=== PATIENT | female | born 1935 | race Caucasian/White ===

== ENCOUNTER 2017-02-06 19:35 | Inpatient (IN) | payer OTHER, BC ==
[~2017-02-06] VITALS: Ht 154.9 cm; Wt 92.5 kg
--- NOTE | ~2017-02-06 | EKG ---
[address] [place] [address] ELECTROCARDIOGRAM REPORT Name: MAGALY PIERSON Room #: 429-P ADM IN M.R.#: [id number] Admission: 02/06/17 Attend Phys: Dagoberto Modi MD Discharge: Date of : 36 Report #: [id number] THIS REPORT FOR: //name// [facility] ED Test Date: 2017-02-06 Test Time: 20:04:56 Pat Name: MAGALY PIERSON Department: Room: [facility] Gender: F Classifier Tender: MZOOK : 1935 Requested By: Simin Aranda Order Number: [id number] MD: Yogi Bower Measurements Intervals [place] Rate: 111 P: MT: QRS: 86 QRSD: 154 T: 3 QT: 380 QTc: 517 Interpretive Statements Atrial fibrillation Right bundle branch block occasional premature ventricular complexes No previous ECG available for comparison Electronically Signed On 02-07-2017 15:22:24 CDT by Yogi Bower [email or web address] <ELECTRONICALLY SIGNED> By: Yogi Bower MD, [facility] 02/07/17 1522 03 03 Yogi Bower MD, FACC /EPI
[~2017-02-06 19:35] MED LIST: 8 HOUR PAIN RE650 M1 PO; ACETAMINOPHEN325 M1 PO; AFEDITAB CR60 M1 PO; AMARYL2 MG PO; ASPIRIN EC81 M1 PO; AUGMENTIN 500-1 EACH PO; CALCIUM 500 +1 EAC5 PO; CALCIUM 600 +1 EAC8 PO; CARDIZEM CD240 MG PO; CARVEDILOL3.125 MG PO; CATAPRES0.1 MG PO; CLONIDINE0.1 PO; COLACE100 MG PO; COREG12.5 MG PO; COUMADIN 2.5MG2.5 M1 PO; COUMADIN 5 MG TA5 M1 PO; COZAAR 25 MG TA25 M1 PO; COZAAR 50 MG TA50 M2 PO; DEMADEX20 MG PO; DILTIAZEM 24HR180 M2 PO; DILTIAZEM ER90 M1 PO; DILTIAZEM HCL90 MG PO; DUONEB 2.5-0.5 M3 ML INH; FEOSOL325 M1 PO; FISH OIL 1,0001 EAC5 PO; FISH OIL 1,001000 M2 PO; GLUCOPHAGE XR500 MG PO; GLUCOSAMINE HC500 MG PO; GOLDEN SEAL PO; HYDRALAZINE 2525 MG PO; JANUVIA100 MG PO; K-DUR10 MEQ PO; L-LYSINE1000 MG PO; LANOXIN 0.120.125 M1 PO; LASIX 80 MG TAB80 MG PO; LEVEMIR SUBQ; LOPRESSOR100 MG PO; LOPRESSOR50 PO; LOSARTAN POTASS50 MG PO; MAGOX 400400 MG PO; METFORMIN HCL500 M2 PO; METFORMIN HCL500 MG PO; METOLAZONE 2.52.5 MG PO; MUCINEX TA600 MG/TA2 PO; NITROFURANTOIN100 MG PO; NORVASC10 MG PO; NORVASC5 MG PO; NYSTATIN1 EA10 TOP; POTASSIUM CHLO10 ME1 PO; POTASSIUM20 PO; PREDNISONE 10 M10 M1 PO; PREDNISONE 20 M20 MG PO; PROTONIX PO; PROTONIX40 M2 PO; SHARK CARTILAG500 MG PO; SORINE 80 MG TA80 M1 PO; SYNTHROID150 MCG PO; TORSEMIDE20 MG PO; TRAMADOL 50 MG50 MG PO; TRIAMTERENE/HCT1 CA1 PO; TRINATE TABLET1 TAB PO; TYLENOL325 MG PO; ULTRAM 50MG TAB50 MG PO; VALSARTAN-HCTZ1 EAC3 PO; VICTOZA0.6 MG/0.1 SUBQ; VITAMIN E400 UNI6 PO; VITAMINC500 PO; ZIAGEN 300 MG300 MG; ZOCOR40 MG PO
[2017-02-06 19:52] VITALS: BP 123/85
[2017-02-06 20:35] LABS: ABSOLUTE NEUTROPHILS 8.8 thou/uL (1.4-8.2); BASOPHILS 0.5 % (0.0-2.0); EOSINOPHILS 1.3 % (0.0-3.0); HEMATOCRIT 30.5 % (37.0-47.0); HEMOGLOBIN 10.2 gm/dL (12.0-15.0); LYMPHOCYTES 7.7 % (24.0-44.0); MCH 31.7 pg (26.0-34.0); MCHC 33.6 g/dL (28.0-37.0); MCV 94.3 fL (80.0-100.0); MONOCYTES 7.8 % (1.0-8.0); PLATELET COUNT 168 thou/uL (150-400); POLYS 82.7 % (36.0-66.0); RBC 3.23 mil/uL (4.20-5.00); RDW 13.9 % (10.5-14.5); WBC 10.6 thou/uL (4.0-11.0)
[2017-02-06 20:39] LABS: MANUAL DIFF NO
[2017-02-06 20:44] LABS: ANION GAP 3 mmol/L (7-16); BUN 38 mg/dL (7-18); CALCIUM 8.7 mg/dL (8.5-10.1); CHLORIDE 100 mmol/L (98-107); CO2 37 mmol/L (21-32); CREATININE 1.4 mg/dL (0.6-1.3); GLUCOSE 115 mg/dL (70-99); POTASSIUM 3.8 mmol/L (3.5-5.1); SODIUM 140 mmol/L (136-145)
[2017-02-06 20:46] LABS: URINE BILIRUBIN NEGATIVE (Negative); URINE BLOOD NEGATIVE (Negative); URINE COLOR YELLOW; URINE GLUCOSE-RANDOM* NEGATIVE (Negative); URINE KETONES NEGATIVE (Negative); URINE LEUKOCYTES-REFLEX 1+ (Negative); URINE PROTEIN (DIPSTICK) NEGATIVE (Negative); URINE UROBILINOGEN 0.2 E.U./dl (0.2-1.0)
[2017-02-06 20:49] LABS: APTT 29.4 Seconds (24.5-32.8); PROTIME 10.8 Seconds (9.3-11.4)
[2017-02-06 20:51] LABS: ALBUMIN 3.5 g/dL (3.4-5.0); ALKALINE PHOSPHATASE 69 U/L (46-116); SGOT 14 U/L (15-37); SGPT 19 U/L (30-65); TOTAL BILIRUBIN 0.2 mg/dL (<0.1-1.0); TOTAL PROTEIN 7.6 g/dL (6.4-8.2); TROPONIN-I < 0.04 ng/mL (<0.04-0.07)
[2017-02-06 20:54] LABS: CASTS None Seen /LPF (None Seen); CRYSTALS None Seen /LPF (None Seen); SQUAMOUS 4-10 Moderate /LPF (0-3); URINE RBC None Seen /HPF (0-2); URINE WBC-REFLEX 6-15 Few /HPF (0-5)
[2017-02-06 23:37] VITALS: BP 114/55
[2017-02-06 23:42] VITALS: BP 136/52
[2017-02-07 04:00] VITALS: BP 141/68
[2017-02-07 06:24] LABS: CREATININE 1.2 mg/dL (0.6-1.3); POTASSIUM 3.8 mmol/L (3.5-5.1); TOTAL BILIRUBIN 0.2 mg/dL (<0.1-1.0)
[2017-02-07 07:55] VITALS: BP 124/56
[2017-02-07 16:14] VITALS: BP 143/56
[2017-02-07 20:00] VITALS: BP 150/72
[2017-02-08 04:00] VITALS: BP 151/77
[2017-02-08 06:09] LABS: HEMATOCRIT 28.3 % (37.0-47.0); HEMOGLOBIN 9.5 gm/dL (12.0-15.0); MCH 31.9 pg (26.0-34.0); MCHC 33.5 g/dL (28.0-37.0); MCV 95.4 fL (80.0-100.0); RBC 2.97 mil/uL (4.20-5.00); RDW 13.8 % (10.5-14.5); WBC 10.1 thou/uL (4.0-11.0)
[2017-02-08 06:34] LABS: ALBUMIN 3.2 g/dL (3.4-5.0); CALCIUM 8.3 mg/dL (8.5-10.1); CREATININE 1.2 mg/dL (0.6-1.3); PHOSPHORUS 3.4 mg/dL (2.5-4.9)
[2017-02-08 07:00] LABS: POTASSIUM 2.9 mmol/L (3.5-5.1)
[2017-02-08 07:44] VITALS: BP 159/69
[2017-02-08] MEDS ORDERED: FLAGYL500 MG PO (13:02)
[2017-02-08] MEDS ORDERED: CIPRO500 MG PO (13:02)
[2017-02-08 13:59] VITALS: BP 143/81
[2017-02-08 14:00] VITALS: BP 159/69
[2017-02-08 14:23] VITALS: BP 159/69
== END 2017-02-08 15:30 | disposition home health service (06) | DRG 444 ==
LOC: ER 19:35 → EROBS 22:12 → 4E 22:12 → EDBD 22:12 → 4E 23:23
PROVIDERS: Emergency Medicine; Hospitalist; Nurse Practitioner
DX: K80.20 Calculus of gallbladder without cholecystitis without obstruction (principal); J96.20 Acute and chronic respiratory failure, unspecified whether with hypoxia or hypercapnia; N17.9 Acute kidney failure, unspecified; I13.0 Hypertensive heart and chronic kidney disease with heart failure and stage 1 through stage 4 chronic kidney disease, or unspecified chronic kidney disease; K52.9 Noninfective gastroenteritis and colitis, unspecified; E11.22 Type 2 diabetes mellitus with diabetic chronic kidney disease; N18.9 Chronic kidney disease, unspecified; I50.9 Heart failure, unspecified; E78.5 Hyperlipidemia, unspecified; E66.9 Obesity, unspecified; G47.33 Obstructive sleep apnea (adult) (pediatric); K21.9 Gastro-esophageal reflux disease without esophagitis; E03.9 Hypothyroidism, unspecified; I48.0 Paroxysmal atrial fibrillation; J44.9 Chronic obstructive pulmonary disease, unspecified; E86.0 Dehydration; E87.6 Hypokalemia; Z99.81 Dependence on supplemental oxygen; Z79.82 Long term (current) use of aspirin; Z79.4 Long term (current) use of insulin; I25.2 Old myocardial infarction; Z87.891 Personal history of nicotine dependence; Z68.38 Body mass index [BMI] 38.0-38.9, adult; Z95.828 Presence of other vascular implants and grafts; Z86.718 Personal history of other venous thrombosis and embolism; Z87.01 Personal history of pneumonia (recurrent); Z87.81 Personal history of (healed) traumatic fracture; Z88.8 Allergy status to other drugs, medicaments and biological substances; Z79.899 Other long term (current) drug therapy
CPT/HCPCS: 10183

== ENCOUNTER 2017-03-07 21:35 | Inpatient (IN) | payer OTHER, BC ==
[~2017-03-07] VITALS: Ht 154.9 cm; Wt 110.6 kg
--- NOTE | ~2017-03-07 | HC ---
[facility] [place] [address] CONSULTATION Name: MAGALY PIERSON Room #: 440-P ADM IN M.R.#: [id number] Admission: 03/07/17 Attend Phys: Dagoberto Modi MD Discharge: Date of : 36 Report #: [id number] THIS REPORT FOR: //name// CC: NU[facility] physician/PCP Dagoberto Modi DATE OF SERVICE: 03/09/2017 HISTORY OF PRESENT ILLNESS: The patient is an 81-year-old white female I was asked to see in the hospital today because of atrial fibrillation. The patient has had multiple hospitalizations here at [facility]. She has a history of COPD and sleep apnea. She is also obese, standing 5 feet 1 inch and weighing 240 pounds. She is not very active. She is followed by Dr. Hui in my office. She has a long history of atrial fibrillation, rate controlled. 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 She has a history of mild aortic stenosis. The patient does have a history of anemia and has been taken off of anticoagulation. She was actually just admitted here to [facility] last month with nausea and vomiting. The patient recently had a cough. She came to the Emergency Room yesterday and was admitted. I was asked to see her for further evaluation and treatment. She actually just saw my partner, Dr. Hui in November. At that time, she was given more Lasix. Her most recent echocardiogram in 05/2016 showed normal left ventricular function, left ventricular hypertrophy, moderate aortic stenosis. The patient denies any recent chest pain, increased shortness of breath, palpitations, syncope. She is not very active because of her large size. PAST MEDICAL HISTORY: Otherwise significant for no major surgical procedures. She has a history of hypertension, diabetes, and hyperlipidemia. She has a long list of medications consisting of potassium, torsemide, Protonix, aspirin, hydralazine, Levemir, Synthroid, Zocor, carvedilol, losartan, diltiazem, metformin. ALLERGIES: She has previous intolerance to Sudafed. FAMILY HISTORY: No history of heart disease. SOCIAL HISTORY: She is . She and her live in [place], [place]. history of recent smoking, rarely drinks alcohol. REVIEW OF SYSTEMS: She has a history of COPD. No history of stroke, no history of peptic ulcer disease, liver disease, kidney disease, cancer, psychiatric illness, chronic skin condition. PHYSICAL EXAMINATION: GENERAL: Revealed an obese elderly female lying in bed. She appeared in [address] [address] CONSULTATION Name: MAGALY PIERSON Room #: [address] [place] [address] IN M.R.#: [id number] Admission: 03/07/17 Attend Phys: Dagoberto Modi MD Discharge: Date of : 36 Report #: [id number] distress. VITAL SIGNS: She had a blood pressure 130/50, pulse is 90 and regular. She is afebrile. HEENT: She is anicteric. Mucous membranes are moist. NECK: Veins difficult to assess due to obesity. Carotids had systolic murmur. CHEST: Clear to auscultation. CARDIAC: Irregular rhythm, grade 2 systolic ejection murmur. ABDOMEN: Obese, soft. EXTREMITIES: Had trace pedal edema. Dorsalis pedis pulse could not be palpated. SKIN: Cool and dry. NEUROLOGIC: Nonfocal. Her ECG showed atrial fibrillation, right bundle branch block. Her workup so far, she had a chest x-ray that was actually done 2 days ago on admission that showed cardiomegaly, mild pulmonary edema, mild infiltrate. LABORATORY DATA: Sodium 141, potassium 3.5, creatinine 1.2. Her troponin 0.04. BNP 3596. White blood cell count 15.6, hemoglobin 9.9, hematocrit 29.3. IMPRESSION AND RECOMMENDATIONS: 1. Acute on chronic diastolic heart failure. Recommend IV Lasix. 2. Atrial fibrillation. Rate controlled with calcium laura, beta laura. The patient not felt to be a candidate for anticoagulation and she has refused warfarin in the past. 3. Moderate aortic stenosis. Recommend repeat echocardiogram. 4. Bronchitis. 5. Obesity. 6. Hypertension. The patient has been on calcium laura, ARB and beta laura. 7. Diabetes. 8. Hyperlipidemia. The patient is on a statin drug. 9. History of deep venous thrombosis. The patient has IVC filter in place. 10. Anemia. No recent bleeding. <ELECTRONICALLY SIGNED> By: Abdifatah Lopez MD, [facility] 03/11/17 0916 0952 1034 Abdifatah Lopez MD, FAC /nt
--- NOTE | ~2017-03-07 | EKG ---
[address] [place] [address] ELECTROCARDIOGRAM REPORT Name: MAGALY PIERSON Room #: 440-P ADM IN M.R.#: [id number] Admission: 03/07/17 Attend Phys: Dagoberto Modi MD Discharge: Date of : 36 Report #: [id number] THIS REPORT FOR: //name// [facility] ED Test Date: 2017-03-07 Test Time: 22:08:46 Pat Name: MAGALY PIERSON Department: Room: [facility] Gender: F Splicing Technician: DAYANARA : 1935 Requested By: Simin Aranda Order Number: [id number] MD: Yogi Bower Measurements Intervals [place] Rate: 111 P: IN: QRS: 52 QRSD: 147 T: -3 QT: 376 QTc: 511 Interpretive Statements Atrial fibrillation Ventricular premature complex Right bundle branch block Compared to ECG 02/06/2017 20:04:56 No significant changes Electronically Signed On 03-08-2017 8:38:40 CDT by Yogi Bower [email or web address] <ELECTRONICALLY SIGNED> By: Yogi Bower MD, [facility] 04/837 07 07 Yogi Bower MD, [facility] /EPI
--- NOTE | ~2017-03-07 | 2DMMODE ---
[facility] [address] [place] [address] 2 D/M-MODE ECHOCARDIOGRAM Name: MAGALY PIERSON Room #: 440-P ADM IN M.R.#: [id number] Admission: 03/07/17 Attend Phys: Patrice Arriaga Discharge: Date of : 37 Date of Service: 03/09/17 1706 Report #: [id number] THIS REPORT FOR: //name// APPROVED REPORT Study performed: 03/09/2017 13:03:13 EXAM: Comprehensive 2D, Doppler, and color-flow Echocardiogram Patient Location: Bedside Room #: 440 Blood Pressure: 151/43 mmHg HR: 85 bpm Rhythm: Atrial Fibrillation Other Information Study Quality: Adequate Indications Murmur CHF. Hx: Afib, [place], CHF, HTN, HLP, DM, COPD, obesity 2D Dimensions RVDd: 39.92 mm LVEF(%): 57.89 (>50%) IVSd: 12.20 (7-11mm) LVOT Diam: 19.79 (18-24mm) LVDd: 51.49 mm PWd: 11.94 (7-11mm) Ascending Aorta: 28.58 mm LVDs: 35.69 (25-40mm) Aortic Root: 30.15 mm Montalvo's LVEF: 57.89 % Volumes Left Atrial Volume (Systole) Single Plane 4CH: 119.50 mL Single Plane 2CH: 132.44 mL LA ESV Index: 67.00 mL/m2 Aortic Valve AoV Peak Lavell.: 2.40 m/s AO Peak Gr.: 23.31 mmHg LV Max P.89 mmHg AO Mean Gr.: 14.19 mmHg LV Max: 0.85 m/s AO V2 VTI: 462.80 mm Mitral Valve [facility] [place] [address] 2 D/M-MODE ECHOCARDIOGRAM Name: LENNY PIERSONTTE Room #: [facility] ADM IN M.R.#: [id number] Admission: 03/07/17 Attend Phys: Patrice Arriaga Discharge: Date of : 37 Date of Service: 03/09/17 1706 Report #: [id number] MV Decel. Time: 224.02 ms MV E Max Lavell.: 1.79 m/s Pulmonary Valve PV Peak Lavell.: 1.13 m/s PV Peak Gr.: 5.15 mmHg Tricuspid Valve TR Peak Lavell.: 2.97 m/s RAP Estimate: 10.00 mmHg TR Peak Gr.: 35.78 mmHg RVSP: 46.00 mmHg Left Ventricle The left ventricle is normal size. There is normal LV segmental wall motion. Mild concentric left ventricular hypertrophy. Left ventricular systolic function is normal. LVEF is 60-65%. This study is not technically sufficient to allow evaluation of the LV diastolic function due to atrial fibrillation. Right Ventricle The right ventricle is normal size. The right ventricular systolic function is normal. Atria Left atrium is severely dilated. Evidence of small left to right shunt suggestive of a PFO> Right atrium is mildly dilated. Aortic Valve Aortic valve is moderately calcified. Trace aortic regurgitation. Mild aortic stenosis. Mitral Valve Severe mitral annular calcification. Mild mitral regurgitation. No evidence of mitral valve stenosis.. Tricuspid Valve The tricuspid valve is normal in structure. There is moderate tricuspid regurgitation. The right atrial pressure is estimated at 10 mmHg. There is moderate pulmonary hypertension with an estimated PAP of 46mmHg. Pulmonic Valve The pulmonary valve is normal in structure. Trace pulmonic regurgitation. Great Vessels The aortic root is normal in size. The ascending aorta is normal in size. IVC is dilated and collapses <50% with [facility] [address] [place] [address] 2 D/M-MODE ECHOCARDIOGRAM Name: MAGALY PIERSON Room #: 440-P ADM IN [facility].#: [id number] Admission: 03/07/17 Attend Phys: Patrice Arriaga Discharge: Date of : 37 Date of Service: 03/09/17 1706 Report #: [id number] inspiration. Pericardium There is no pericardial effusion. <Conclusion> Mild concentric left ventricular hypertrophy. LVEF is 60-65%. Left atrium is severely dilated. Right atrium is mildly dilated. Aortic valve is moderately calcified. Mild aortic stenosis. Mild mitral regurgitation. There is moderate tricuspid regurgitation. The right atrial pressure is estimated at 10 mmHg. There is moderate pulmonary hypertension with an estimated PAP of 46mmHg. <ELECTRONICALLY SIGNED> By: Abdifatah Lopez MD, FACC 03/09/171705 05 05 Abdifatah Lopez MD, FACC /INF
--- NOTE | ~2017-03-07 | HC ---
[facility] [place] [address] CONSULTATION Name: MAGALY PIERSON Room #: 440-P ADM IN M.R.#: [id number] Admission: 03/07/17 Attend Phys: Dagoberto Modi MD Discharge: Date of : 37 Report #: [id number] THIS REPORT FOR: //name// CC: [facility] physician/PCP Dagoberto Modi REFERRAL PHYSICIAN: Dr. Yumi Bell. REASON FOR REFERRAL: Hypoxia. HISTORY OF PRESENT ILLNESS: The patient is an 81-year-old white female who presents to the Emergency Room with progressive cough and dyspnea. Chest x-ray shows infiltrates. The patient was admitted for pneumonia. A pulmonary consultation was requested. The patient is followed longitudinally by Dr. Simon. She has obstructive sleep apnea, is on home CPAP. She also has COPD with remote history of tobacco use. The patient states that she was in her usual state of health until 2 days prior to presentation when she started to develop cough productive of purulent sputum along with progressive dyspnea. Otherwise, denies any chest pain, nausea, vomiting, diarrhea, and hematemesis. Portable chest x-ray performed today revealed patchy right-sided infiltrates. PAST MEDICAL HISTORY: Is notable for COPD, obstructive sleep apnea on home CPAP, exogenous obesity, history of DVT, history of heparin-induced thrombocytopenia, status post IVC filter placement, mild aortic stenosis, atrial fibrillation, recent echocardiogram performed in May of 2016 showed normal LV function, moderate aortic stenosis. She also has a history of hypertension, diabetes mellitus, hyperlipidemia. She has chronic hypoxic respiratory failure on 3 liters of O2. PAST SURGICAL HISTORY: Unremarkable. ALLERGIES: To HEPARIN, heparin resulting in thrombocytopenia, SUDAFED, LATEX, reactions not specified. MEDICATIONS: List from home reviewed. Current medications are also reviewed. She is also on methylprednisolone, Protonix, Zosyn, levofloxacin. FAMILY HISTORY: Noncontributory. SOCIAL HISTORY: She is , lives with her . She has smoked, but quit over 30 years ago. She denies any alcohol use. REVIEW OF SYSTEMS: As mentioned above, otherwise 10-point system review [facility] [address] [place] [address] CONSULTATION Name: MAGALY PIERSON Room #: 440-P [facility] IN ..#: [id number] Admission: 03/07/17 Attend Phys: Dagoberto Modi MD Discharge: Date of : 36 Report #: [id number] negative. PHYSICAL EXAMINATION: GENERAL: She is awake, alert, in mild respiratory distress. VITAL SIGNS: Temperature is 98 degrees Fahrenheit, pulse is 93, respiratory rate is 24, blood pressure 132/63 mmHg, saturation 98%. HEENT: Normocephalic, atraumatic. NECK: Supple without any lymphadenopathy or thyromegaly. CHEST: Breath sounds are fair with mild coarse breath sounds bilaterally. CARDIOVASCULAR: Heart sounds are distant. No obvious murmurs or gallop. Pulses are 2+/4 bilaterally. BREASTS: Deferred. ABDOMEN: Obese, soft, nontender, no organomegaly or masses felt. GENITOURINARY: Deferred. RECTAL: Deferred. EXTREMITIES: No cyanosis or clubbing. Trace bilateral edema is noted. LABORATORY DATA: Chest x-ray again shows patchy bilateral infiltrates, more on the right than the left. Electrolytes unremarkable except for creatinine of 1.3, bicarbonate is 37. Liver function profile is normal. WBC 11,700, hemoglobin 8.7, platelets are normal. Albumin 2.6. Arterial blood gas from 03/10/2017 revealed a pH of 7.32, pCO2 of 72 and pO2 of 57. IMPRESSION: 1. Acute on chronic hypoxic hypercapnic respiratory failure in this 81-year-old white female secondary to pneumonia, chronic obstructive pulmonary disease, probable obesity hypoventilation syndrome. 2. Right bilateral infiltrates, presumed pneumonia, possible aspiration, possible gram negative. 3. Chronic obstructive pulmonary disease with exacerbation, severity unknown. 4. SILVANO, on home CPAP. Arterial blood gas suggests probable obesity hypoventilation syndrome. Uncertain whether chronic hypercapnia is related to severe chronic obstructive pulmonary disease. However, given body habitus suspect hypoventilation syndrome is a primary cause. 5. Obesity. 6. Protein calorie malnutrition, severe, with an albumin of 2.6. 7. Past history of deep vein thrombosis status post IVC filter placement. RECOMMENDATION: Agree with corticosteroids and bronchodilators. Continue broad spectrum antibiotics. DVT and GI prophylaxis will be addressed. Recent worsening since admission may be related to severe multitude comorbid conditions including morbid obesity. Increasing activity would be helpful along with chest physiotherapy. [address] [address] CONSULTATION Name: MAGALY PIERSON Room #: 440-P ADM IN M.R.#: [id number] Admission: 03/07/17 Attend Phys: Dagoberto Modi MD Discharge: Date of : 36 Report #: [id number] Thank you for the consultation. <ELECTRONICALLY SIGNED> By: Wilfred Sanchez MD 03/12/17 1501 1501 2219 Wilfred Sanchez MD /nt
[~2017-03-07 21:35] MED LIST changes: +CIPRO500 MG PO; +FLAGYL500 MG PO
[2017-03-07 21:47] VITALS: BP 144/73
[2017-03-07] MEDS ORDERED: CARDIZEM CD240 MG PO (22:09)
[2017-03-07] MEDS ORDERED: METFORMIN HCL500 MG PO (22:11)
[2017-03-07] MEDS ORDERED: GOLDEN SEAL RO535 MG PO (22:14)
[2017-03-07] MEDS ORDERED: POTASSIUM20 PO (22:25)
[2017-03-07] MEDS ORDERED: LEVEMIR SUBQ (22:26)
[2017-03-07] MEDS ORDERED: MUCINEX TA600 MG/TA1 PO (22:27)
[2017-03-07] MEDS ORDERED: TUMS PO (22:28)
[2017-03-07 22:29] LABS: HEMATOCRIT 29.3 % (37.0-47.0); HEMOGLOBIN 9.9 gm/dL (12.0-15.0); MCH 31.9 pg (26.0-34.0); MCHC 33.6 g/dL (28.0-37.0); MCV 94.9 fL (80.0-100.0); PLATELET COUNT 177 thou/uL (150-400); RBC 3.09 mil/uL (4.20-5.00); RDW 14.1 % (10.5-14.5); WBC 15.6 thou/uL (4.0-11.0)
[2017-03-07] MEDS ORDERED: RESTORIL15 MG PO (22:29)
[2017-03-07 22:32] LABS: MANUAL DIFF YES
[2017-03-07 22:39] LABS: ANION GAP 4 mmol/L (7-16); BUN 30 mg/dL (7-18); CALCIUM 8.9 mg/dL (8.5-10.1); CHLORIDE 98 mmol/L (98-107); CO2 36 mmol/L (21-32); CREATININE 1.3 mg/dL (0.6-1.0); GLUCOSE 191 mg/dL (74-106); POTASSIUM 3.9 mmol/L (3.5-5.1); SODIUM 138 mmol/L (136-145)
[2017-03-07 22:49] LABS: ALBUMIN 3.1 g/dL (3.4-5.0); ALKALINE PHOSPHATASE 76 U/L (46-116); NT-PRO BRAIN NAT PEPTIDE 3596 pg/mL (<300); SGOT 20 U/L (15-37); SGPT 19 U/L (30-65); TOTAL BILIRUBIN 0.5 mg/dL (<0.1-1.0); TOTAL PROTEIN 7.5 g/dL (6.4-8.2); TROPONIN-I < 0.04 ng/mL (<0.04-0.07)
[2017-03-07 23:13] LABS: ABSOLUTE NEUTROPHILS 14.4 thou/uL (1.4-8.2); ANISOCYTOSIS SLIGHT; TOTAL CELL COUNT 100
[2017-03-08] VITALS (7 sets, daily range): BP systolic 119–150; BP diastolic 52–64
[2017-03-08 08:09] LABS: CALCIUM 8.2 mg/dL (8.5-10.1); CREATININE 1.2 mg/dL (0.6-1.0); MAGNESIUM 1.9 mg/dL (1.8-2.4); POTASSIUM 3.5 mmol/L (3.5-5.1)
[2017-03-09 03:21] VITALS: BP 130/50
[2017-03-09 08:00] VITALS: BP 151/43
[2017-03-09 12:00] VITALS: BP 119/50
[2017-03-09 16:00] VITALS: BP 124/56
[2017-03-09 19:30] VITALS: BP 143/69
[2017-03-10 04:01] VITALS: BP 144/58
[2017-03-10 05:34] LABS: HEMOGLOBIN 8.9 gm/dL (12.0-15.0); MCH 31.3 pg (26.0-34.0); MCV 94.9 fL (80.0-100.0); PLATELET COUNT 175 thou/uL (150-400); RBC 2.84 mil/uL (4.20-5.00); WBC 11.7 thou/uL (4.0-11.0)
[2017-03-10 05:51] LABS: ALBUMIN 2.6 g/dL (3.4-5.0); CALCIUM 8.5 mg/dL (8.5-10.1); CREATININE 1.2 mg/dL (0.6-1.0); MANUAL DIFF YES; TOTAL BILIRUBIN 0.6 mg/dL (<0.1-1.0); TOTAL PROTEIN 7.3 g/dL (6.4-8.2)
[2017-03-10 06:02] LABS: POTASSIUM 2.9 mmol/L (3.5-5.1)
[2017-03-10 07:59] LABS: ABSOLUTE NEUTROPHILS 10.3 thou/uL (1.4-8.2); ANISOCYTOSIS SLIGHT; LARGE PLATELETS OCCASIONAL; POIKILOCYTOSIS SLIGHT; TOTAL CELL COUNT 100
[2017-03-10 08:45] VITALS: BP 143/43
[2017-03-10 12:37] VITALS: BP 118/59
[2017-03-10 16:35] VITALS: BP 149/40
[2017-03-10 19:25] VITALS: BP 134/44
[2017-03-10 23:32] LABS: ABG SAMPLE TYPE ARTERIAL; HCO3 37.1 mmol/L (22.0-26.0); LACTATE 1.13 mmol/L (0.5-2.0); O2(CT) 13.6 mL/dL (15.0-23.0); O2Hb 86.5 % (92.0-98.0); sO2 86.4 % (92.0-98.0); tCO2 39.3 mmol/L (24.0-30.0)
[2017-03-10 23:33] VITALS: BP 133/58
[2017-03-10 23:35] LABS: STICK SITE R.RADIAL; pH 7.329 (7.360-7.450)
[2017-03-10 23:36] LABS: ABG COMMENT O2 7LPM WITH HOME; PCO2 72.2 mmHg (35.0-45.0)
[2017-03-11 03:20] VITALS: BP 137/73
[2017-03-11 05:48] LABS: HEMATOCRIT 26.1 % (37.0-47.0); HEMOGLOBIN 8.7 gm/dL (12.0-15.0); MCH 32.1 pg (26.0-34.0); MCHC 33.4 g/dL (28.0-37.0); MCV 96.2 fL (80.0-100.0); RBC 2.72 mil/uL (4.20-5.00); RDW 13.9 % (10.5-14.5); WBC 11.7 thou/uL (4.0-11.0)
[2017-03-11 05:56] LABS: CALCIUM 8.3 mg/dL (8.5-10.1); CREATININE 1.3 mg/dL (0.6-1.0); POTASSIUM 3.8 mmol/L (3.5-5.1)
[2017-03-11 08:00] VITALS: BP 159/72
[2017-03-11 12:14] VITALS: BP 132/63
[2017-03-12 05:00] VITALS: BP 151/76
[2017-03-12 06:55] LABS: HEMATOCRIT 27.7 % (37.0-47.0); MCH 31.1 pg (26.0-34.0); MCHC 32.4 g/dL (28.0-37.0); RBC 2.88 mil/uL (4.20-5.00); WBC 12.6 thou/uL (4.0-11.0)
[2017-03-12 07:03] LABS: CALCIUM 8.5 mg/dL (8.5-10.1); CREATININE 1.4 mg/dL (0.6-1.0); POTASSIUM 3.8 mmol/L (3.5-5.1)
[2017-03-12 08:04] VITALS: BP 138/55
[2017-03-12 12:00] VITALS: BP 161/61
[2017-03-12 19:56] VITALS: BP 109/87
[2017-03-12 21:53] VITALS: BP 153/64
[2017-03-13 06:02] VITALS: BP 141/95
[2017-03-13 08:00] VITALS: BP 146/84
[2017-03-13 12:00] VITALS: BP 151/62
[2017-03-13 16:00] VITALS: BP 158/80
[2017-03-14 04:24] LABS: HEMATOCRIT 29.5 % (37.0-47.0); HEMOGLOBIN 9.8 gm/dL (12.0-15.0); MCH 31.3 pg (26.0-34.0); MCHC 33.1 g/dL (28.0-37.0); MCV 94.4 fL (80.0-100.0); RBC 3.12 mil/uL (4.20-5.00); RDW 13.9 % (10.5-14.5); WBC 13.4 thou/uL (4.0-11.0)
[2017-03-14 04:31] VITALS: BP 141/78
[2017-03-14 04:31] LABS: CALCIUM 8.3 mg/dL (8.5-10.1); CREATININE 1.5 mg/dL (0.6-1.0); MAGNESIUM 2.1 mg/dL (1.8-2.4); POTASSIUM 3.6 mmol/L (3.5-5.1)
[2017-03-14 08:00] VITALS: BP 141/78
[2017-03-14 12:00] VITALS: BP 148/67
[2017-03-14] MEDS ORDERED: AUGMENTIN 500-1 EACH PO (13:05)
[2017-03-14] MEDS ORDERED: DUONEB 2.5-0.5 M3 ML INH (13:05)
[2017-03-14] MEDS ORDERED: MAGNESIUM OXID400 MG PO (13:22)
[2017-03-14] MEDS ORDERED: ADULT LOW DOSE81 MG PO (13:22)
[2017-03-14] MEDS ORDERED: COZAAR 50 MG TA50 M2 PO (13:22)
[2017-03-14] MEDS ORDERED: CARDIZEM CD240 MG PO (13:22)
[2017-03-14] MEDS ORDERED: MUCINEX TA600 MG/TA1 PO (13:22)
[2017-03-14] MEDS ORDERED: TYLENOL325 MG PO (13:22)
[2017-03-14] MEDS ORDERED: BENZONATATE100 MG PO (13:22)
[2017-03-14] MEDS ORDERED: K-DUR 20 MEQ T20 MEQ PO (13:22)
[2017-03-14] MEDS ORDERED: DEMADEX20 MG PO (13:22)
[2017-03-14] MEDS ORDERED: FISH OIL 1,001000 M2 PO (13:22)
[2017-03-14] MEDS ORDERED: ATORVASTATIN CA40 MG PO (13:22)
[2017-03-14] MEDS ORDERED: ULTRAM 50MG TAB50 MG PO (13:22)
== END 2017-03-14 13:45 | disposition home health service (06) | DRG 871 ==
LOC: ER 21:35 → EROBS 23:08 → 4S 23:08
PROVIDERS: Emergency Medicine; Family Medicine; Internal Medicine Pulmonary Disease; Nurse Practitioner
PROC: 5A09357 Assistance with Respiratory Ventilation, Less than 24 Consecutive Hours, Continuous Positive Airway Pressure (ICD-10-PCS; principal; 2017-03-10)
DX: A41.9 Sepsis, unspecified organism (principal); J18.9 Pneumonia, unspecified organism; I50.33 Acute on chronic diastolic (congestive) heart failure; J96.21 Acute and chronic respiratory failure with hypoxia; J96.22 Acute and chronic respiratory failure with hypercapnia; I13.0 Hypertensive heart and chronic kidney disease with heart failure and stage 1 through stage 4 chronic kidney disease, or unspecified chronic kidney disease; J44.1 Chronic obstructive pulmonary disease with (acute) exacerbation; J44.0 Chronic obstructive pulmonary disease with (acute) lower respiratory infection; N17.9 Acute kidney failure, unspecified; E44.1 Mild protein-calorie malnutrition; Z68.42 Body mass index [BMI] 45.0-49.9, adult; E78.5 Hyperlipidemia, unspecified; G47.33 Obstructive sleep apnea (adult) (pediatric); E66.9 Obesity, unspecified; K21.9 Gastro-esophageal reflux disease without esophagitis; E03.9 Hypothyroidism, unspecified; E11.22 Type 2 diabetes mellitus with diabetic chronic kidney disease; N18.9 Chronic kidney disease, unspecified; I48.0 Paroxysmal atrial fibrillation; D64.9 Anemia, unspecified; K80.20 Calculus of gallbladder without cholecystitis without obstruction; I35.0 Nonrheumatic aortic (valve) stenosis; I99.9 Unspecified disorder of circulatory system; Z87.81 Personal history of (healed) traumatic fracture; I25.2 Old myocardial infarction; Z86.718 Personal history of other venous thrombosis and embolism; Z88.8 Allergy status to other drugs, medicaments and biological substances; Z87.891 Personal history of nicotine dependence
CPT/HCPCS: 10100

== ENCOUNTER 2019-07-08 10:45 | Inpatient (IN) | payer OTHER, BC ==
[~2019-07-08] VITALS: Ht 154.9 cm; Wt 116.8 kg
--- NOTE | ~2019-07-08 | O ---
[facility] [place] [address] OPERATIVE REPORT Name: MAGALY PIERSON Room #: 355-P [facility] IN .R.#: [id number] Admission: 07/08/19 Attend Phys: Kenji Ramirez MD Discharge: Date of : 36 Report #: [id number] THIS REPORT FOR: //name// CC: Mauri Ramirez DATE OF SERVICE: 07/09/2019 PREOPERATIVE DIAGNOSIS: Left grade 2 open bimalleolar ankle fracture. POSTOPERATIVE DIAGNOSIS: Left grade 2 open bimalleolar ankle fracture. PROCEDURE PERFORMED: 1. Irrigation and debridement, left grade 2 open bimalleolar ankle fracture. 2. Open reduction and internal fixation of left bimalleolar ankle fracture. SURGEON: Martha Mayorga M.D. ANESTHESIA: General mask anesthesia. ESTIMATED BLOOD LOSS: 20 mL. TOURNIQUET TIME: 77 minutes. COMPLICATIONS: None. CONDITION: Stable. DISPOSITION: Recovery room. IMPLANTS USED: 7-hole 1/3 tubular plate and two 4 mm cannulated screws. INDICATIONS: The patient is an 84-year-old female who presented with a delayed presentation of grade 2 open left ankle fracture. The recommendation was for irrigation and debridement to decrease her infection risk as well as open reduction and internal fixation for stability purposes. The risks, benefits, alternatives and complications were discussed including but not limited to infection, damage to vessels or nerves, nonunion, malunion, hardware failure, hardware irritation, stiffness. We discussed the possibility of hardware removal at a later date. Her was present at her bedside. Informed consent was obtained. The correct extremity was identified and labeled by myself after verbal confirmation of the patient as well as visual confirmation and signed informed consent. DESCRIPTION OF PROCEDURE: The patient was brought to the operating room and placed in a supine position. She received preoperative antibiotics. Tourniquet [address] [address] OPERATIVE REPORT Name: MAGALY PIERSON Room #: 355-P ADM IN .R.#: [id number] Admission: 07/08/19 Attend Phys: Kenji Ramirez MD Discharge: Date of : 36 Report #: [id number] was placed over padding on the patient's left lower extremity. Left lower extremity was sterilely prepped and draped in the usual fashion. Final timeout was taken to verify correct patient, operative procedure, operative site, all concurred. The leg was elevated, exsanguinated and the tourniquet inflated. The sutures were removed from the 5 cm wound that was repaired in the Emergency Department at [facility]. The wound was opened and there was immediate communication with the fracture site of medial malleolus. The wound was cleaned of clot and debris. The joint was evaluated and looked to be in good condition. The fracture site and skin and subcutaneous tissue were irrigated with 3 liters of antibiotic saline using a Pulsavac. Then in order to gain fixation, the incision had to be extended at an oblique angle anteriorly. Next, dissection was carried down through subcutaneous tissue with tenotomy scissors and 2.2 guidewires for the 4-0 cannulated screws were placed. These were checked under fluoroscopy in both AP and lateral planes. Once they were found to be in appropriate position, the proximal portion of the fracture was drilled and a 46 mm long thread screws were placed. These had good fixation. There was noted some posterior cortical comminution. Next, the AP, lateral and mortise views showed good position of the fracture and hardware. Next, attention was placed to the lateral fibula. Approximately a 10 cm incision was made over the lateral fibula. Dissection was carried down through subcutaneous tissues with tenotomy scissors. The periosteum was elevated off the bone and the fracture site was identified. It was fairly comminuted. Her bone was not of the best quality. I was unable to put a lag screw in due to her poor bone quality and comminution. So neutralization plate was applied to the bone and distal screw was placed and proximal screw was then placed using fluoroscopic guidance. The rest of the holes were drilled, measured and appropriate size screws were placed while taking care to avoid penetration of the syndesmosis or ankle joint. AP and lateral views showed good position of the fracture and hardware. The wound was thoroughly irrigated. AP, lateral and mortise views were taken, which showed good position of the fracture and hardware. The external rotation view was also taken as well as the fibula was pulled on dynamically to assess the syndesmosis. The syndesmosis was intact and was thoroughly irrigated. Deep tissue was closed with 2-0 Vicryl suture and the subcutaneous tissue was closed with 2-0 Vicryl suture. The lateral wound was closed with jody and the wound was closed with deep Vicryl and 3-0 nylon suture as well as two distal jody. The wounds were dressed with Xeroform and sterile gauze. She was placed in a bulky dressing and very well-padded sugar tong and posterior slab splint. All toes were pink with brisk capillary refill at the conclusion of case after deflation of tourniquet. All sponge and needle counts were correct. The patient was transferred to postoperative recovery room in stable condition. By: 1424 1517 Martha Mayorga MD /nt
--- NOTE | ~2019-07-08 | HC ---
[facility] [place] [address] CONSULTATION Name: MAGALY PIERSON Room #: 355-P ADM IN M.R.#: [id number] Admission: 07/08/19 Attend Phys: Kenji Ramirez MD Discharge: Date of : 36 Report #: [id number] THIS REPORT FOR: //name// CC: Mauri Ramirez REASON FOR CONSULTATION: Left ankle fracture. HISTORY OF PRESENT ILLNESS: The patient is an 84-year-old female who was transferring from her wheelchair to a chair yesterday morning when she fell due to leg weakness per the patient and sustained an ankle fracture. She was seen at [facility], was transferred here due to her medical comorbidities. She reportedly had a laceration to the top of her foot that was repaired in the Emergency Department at [facility]. She was then placed in a splint and transferred here. She denies loss of consciousness. Denies dizziness or lightheadedness. Denies any other extremity issues. REVIEW OF SYSTEMS: MUSCULOSKELETAL: See HPI. NEUROLOGIC: Denies numbness or tingling. PAST MEDICAL HISTORY: Significant for COPD, hypertension, atrial fibrillation, chronic renal failure, diabetes, aortic stenosis, complete heart block, morbid obesity. ALLERGIES: INCLUDE HEPARIN and PSEUDOEPHEDRINE. SOCIAL HISTORY: Ambulates minimally with a walker, mostly transfers. Denies smoking. Drinks alcohol occasionally, is and lives with her of 62 years. SURGICAL HISTORY: Unknown. MEDICATIONS: The patient's MAR was reviewed, which shows ceftriaxone, diltiazem, aspirin, amiodarone, albuterol, pantoprazole, levothyroxine, insulin, atorvastatin, carvedilol, fentanyl, Healthylax, ondansetron and hydrocodone. LABORATORY DATA: Done on 07/09/2019 show white blood cell count 7, hemoglobin 8, hematocrit 24.6, platelet count 173. Chemistry shows an elevated creatinine of 1.7. PHYSICAL EXAMINATION: GENERAL: The patient is alert and oriented. She interacts appropriately. She is well-developed, well-nourished female, in mild amount of distress with manipulation of her leg. VITAL SIGNS: Most recent vital signs show a temperature of 36.8 degrees centigrade, heart rate is 81, blood pressure 144/66[place] [address] CONSULTATION Name: LENNY PIERSONTTE Room #: [address] [place] [address] IN .R.#: [id number] Admission: 07/08/19 Attend Phys: Kenji Ramirez MD Discharge: Date of : 36 Report #: [id number] bedside. EXTREMITIES: Examination of her left lower extremity, she is in a sugar-tong splint. The splint and dressing were removed. She has a repaired 5 cm laceration at the medial ankle. There was significant dried blood in the Kerlix dressing. There is significant amount of edema, no erythema. She has tenderness to her ankle. No significant tenderness at her foot. Her foot is otherwise neurovascularly intact. She wiggles her toes. She has diffuse edema and tenderness in her knee. No pain with hip range of motion. There is a mild amount of pain with knee range of motion. RADIOGRAPHS: Unavailable for review. IMPRESSION AND PLAN: Left probable open bimalleolar ankle fracture with a subacute presentation. I spoke with the medical doctor. He started ceftriaxone as noted in the MAR. We will order stat x-rays of her ankle and knee and the patient will require debridement with probable open reduction and internal fixation of the ankle depending x-ray findings. I will also order stat x-rays of her knee. We discussed the diagnosis as well as treatment options. The risks, benefits, alternatives and complications were discussed including but not limited to infection, damage to vessels or nerves, nonunion, malunion, hardware failure, hardware irritation, stiffness. Informed consent was obtained. Plan to proceed with this at the earliest convenience. Questions were encouraged and answered to the best of my ability. By: [id number] Martha Mayorga MD /nt
[~2019-07-08 10:45] MED LIST changes: +ADULT LOW DOSE81 MG PO; +ATORVASTATIN CA40 MG PO; +BENZONATATE100 MG PO; +CARDIZEM CD 18180 M3 PO; +COZAAR 25 MG TA25 M2 PO; +GOLDEN SEAL RO535 MG PO; +K-DUR 20 MEQ T20 MEQ PO; +LUNESTA2 MG PO; +MAGNESIUM OXID400 MG PO; +MUCINEX TA600 MG/TA1 PO; +MUCINEX600 MG PO; +OMEGA-31000 M1 PO; +OS-CAL 500+D31 EAC1 PO; +PACERONE 200 M200 M1 PO; +RESTORIL15 MG PO; +TUMS PO
[2019-07-08 12:40] VITALS: BP 152/71
[2019-07-08] MEDS ORDERED: COZAAR 25 MG TA25 M1 PO (13:12)
[2019-07-08] MEDS ORDERED: IPRAT-ALBUT 0.5-3 ML IH (13:14)
[2019-07-08] MEDS ORDERED: L-LYSINE1000 M1 PO (13:15)
[2019-07-08 14:15] LABS: HEMATOCRIT 27.5 % (37.0-47.0); HEMOGLOBIN 9.1 gm/dL (12.0-15.0); MCH 32.9 pg (26.0-34.0); MCHC 33.2 g/dL (28.0-37.0); MCV 98.8 fL (80.0-100.0); RBC 2.78 mil/uL (4.20-5.00); RDW 14.9 % (10.5-14.5); WBC 10.1 thou/uL (4.0-11.0)
[2019-07-08 14:31] LABS: CALCIUM 9.5 mg/dL (8.5-10.1); CREATININE 1.8 mg/dL (0.6-1.0); POTASSIUM 4.7 mmol/L (3.5-5.1)
[2019-07-08 14:37] LABS: ALBUMIN 3.3 g/dL (3.4-5.0); TOTAL BILIRUBIN 0.3 mg/dL (<0.1-1.0); TOTAL PROTEIN 6.9 g/dL (6.4-8.2)
[2019-07-08 15:40] VITALS: BP 155/103
--- NOTE | 2019-07-08 18:15 | NUR ---
ASSUMED CARE OF PT ON ARRIVAL TO UNIT AT APPROX 1130. PT ALERT AND ORIENTED X3, COMPLAINING OF PAIN TO LLE. PRESENTS WITH CAST PLACED FROM [facility]. SHALLOW DIMINISHED BREATHS ON 4-5L NC. AT BEDSIDE. MEDS RECONCILED. PAIN NOW WELL CONTROLLED WITH CURRENT MED REGIMEN. AFIB ON TELEMETRY. ORTHO CONSULTED FOR POSSIBLE SURGERY. GOOD APPETITE. WILL CONT TO MONITOR.
[2019-07-08 19:10] VITALS: BP 147/59
[2019-07-08 22:51] LABS: URINE BILIRUBIN NEGATIVE (Negative); URINE BLOOD NEGATIVE (Negative); URINE CLARITY CLEAR; URINE COLOR YELLOW; URINE GLUCOSE-RANDOM* NEGATIVE (Negative); URINE KETONES NEGATIVE (Negative); URINE LEUKOCYTES 1+ (Negative); URINE NITRITE NEGATIVE (Negative); URINE PROTEIN (DIPSTICK) TRACE (Negative); URINE SPECIFIC GRAVITY 1.015 (1.005-1.035); URINE UROBILINOGEN 0.2 E.U./dl (0.2-1.0)
[2019-07-08 23:20] LABS: BACTERIA >30 Many /HPF (None Seen); CASTS None Seen /LPF (None Seen); CRYSTALS None Seen /LPF (None Seen); MUCUS 0-3 Light strn/LPF (None Seen); SQUAMOUS 0-3 Few /LPF (0-3); URINE RBC 0-2 Rare /HPF (0-2)
[2019-07-08 23:35] VITALS: BP 149/70
--- NOTE | 2019-07-09 03:16 | NUR ---
ASSUMED PT CARE AROUND 1900. A&OX3-4, FORGETFUL. C/O LEFT ANKLE PAIN. PAIN MEDICATION GIVEN WITH PARTIAL RELIEF. VSS. AFEBRILE. LEFT LE/ANKLE SOFT CAST IN PLACE. PT ATTEMPTED TO WEAR HOME CPAP WHILE SLEEPING. O2 SATS DROPPED TO 80S SINCE PT IS A MOUTH BREATHER. RT NOTIFIED. PT WAS NOT TOLERATING CPAP WELL SO PLACED BACK ON BASELINE OF 4L NC. O2 SATS STABLE ON 4L NC. PT SLEPT MOST OF THE NIGHT. RESP EVEN AND UNLABORED. FALL PRECAUTIONS IN PLACE. PROGRESSING SLOWLY TOWARD POC GOALS. WILL CONTINUE TO MONITOR FURTHER.
[2019-07-09 03:38] VITALS: BP 149/43
[2019-07-09 05:14] LABS: HEMATOCRIT 24.6 % (37.0-47.0); MCH 32.4 pg (26.0-34.0); MCHC 32.7 g/dL (28.0-37.0); MCV 99.2 fL (80.0-100.0); RBC 2.48 mil/uL (4.20-5.00); RDW 14.8 % (10.5-14.5)
[2019-07-09 05:24] LABS: CALCIUM 9.1 mg/dL (8.5-10.1); CREATININE 1.7 mg/dL (0.6-1.0); POTASSIUM 4.9 mmol/L (3.5-5.1)
[2019-07-09 07:30] VITALS: BP 144/66
--- NOTE | 2019-07-09 10:44 | EKG ---
[address] [address] ELECTROCARDIOGRAM REPORT Name: MAGALY PIERSON Room #: 355- ADM IN M.R.#: [id number] Admission: 07/08/19 Attend Phys: Kenji Ramirez MD Discharge: Date of : 36 Report #: [id number] THIS REPORT FOR: //name// [facility] Test Date: 2019-07-08 Test Time: 15:57:52 Pat Name: MAGLAY PIERSON Department: Room: 355 Gender: F Director Pharmacovigilance: ELOINA : 1935 Requested By: Kenji Ramirez Order Number: [id number] MD: Yogi Bower Measurements Intervals [place] Rate: 96 P: AL: QRS: 146 QRSD: 157 T: -11 QT: 393 QTc: 497 Interpretive Statements Atrial fibrillation Right bundle branch block Compared to ECG 03/07/2017 22:08:46 Ventricular premature complex(es) no longer present Electronically Signed On 07-09-2019 10:44:34 CDT by Yogi Bower [email or web address] <ELECTRONICALLY SIGNED> By: Yogi Bower MD, [facility] 07/09/19 1044 [id number] [id number] Yoig Bower MD, [facility] /EPI
[2019-07-09 15:22] LABS: BE(vivo) 8.2 mmol/L (-2 to +3); HCO3 35.4 mmol/L (22.0-26.0); PCO2 67.7 mmHg (35.0-45.0); PO2 73.3 mmHg (80.0-100.0); pH 7.336 (7.360-7.450); sO2 93.3 % (92.0-98.0)
[2019-07-09 16:44] VITALS: BP 159/56
--- NOTE | 2019-07-09 17:30 | NUR ---
ASSUMED CARE OF PT AT 0700. PT ALERT AND ORIENTEDX3-4, COMPLAINING OF PAIN TO LLE - WELL CONTROLLED WTIH CURRENT MED REGIMEN. SURGERY PERFORMED BY ORTHO ON LEFT ANKLE. RETURNED ON BIPAP. FAMILY AT BEDSIDE. VITALS STABLE. WILL CONT TO MONITOR. INCONTINENT OF URINE. TURNED Q2H. ANTICIPATING POSSIBLE PICC PLACEMENT - AWAITING ORDERS. IV ABX INFUSING. AFIB ON TELEMETRY. WILL CONT TO MONITOR.
--- NOTE | 2019-07-09 19:48 | NUR ---
CONSULTED TO PLACE A PICC FOR A PATIENT NEEDING ADDITIONAL ACCESS. ORDER AND CONSENT NOTED. THE PROCEDURE WAS DISCUSSED WITH THE PATIENT, AND SON AND THE ALL AGREED WITH BENIFITS AND RISKS. THE PATIENT WAS IN 10/10 PAIN AND IMPATIENT WITH SETUP. A TRIPLE LUMEN PICC ATTEMPTED TO THE ELIZABETH CEPHALIC. UNABLE TO ADVANCE THE PICC PAST THE SHOULDER AND UNABLE TO PLACE IN THE SVC AFTER MULTIPLE ATTEMPTS, THIS PATIENT IS UNABLE TO REPOSITION FOR MORE ATTEMPTS. LINE TRIMMED A MIDLINE ACCESS WITH BRISK BLOOD RETURN AND FLUSHED EASILY. DISCUSSED MIDLINE ACCESS WITH THE PATIENTS NURSE- ALL HER IV MEDS ARE COMPATABLE. DISCUSSED WITH PATIENT AND FAMILY WELL- IF A CENTRAL ACCESS IS NEEDED FOR HALF-WAY ANTIBIOTICS THE LINE MAY NEED TO BE PLACED IN IR. UNABLE TO USE LEFT ARM DUE TO LEFT SIDED PACEMAKER.
[2019-07-09 20:02] VITALS: BP 154/65
[2019-07-09 23:30] VITALS: BP 145/60
--- NOTE | 2019-07-10 03:24 | NUR ---
ASSUMED PT CARE AROUND 1900. PT SLEPT MOST OF THE NIGHT. RESP EVEN AND UNLABORED. O2 SATS STABLE ON BIPAP. INCONTINENT OF URINE WITH ADEQUATE URINE OUTPUT. REPOSITIONED PT WOUND ALLOW. SOMETIMES PT OR WOUND REFUSED BEING TURNED SO SHE COULD REST. LLE DRESSING C/D/I. PAIN MEDICATION GIVEN THIS MORNING, PER PT REQUEST. FALL PRECAUTIONS IN PLACE. PROGRESSING SLOWLY TOWARD POC GOALS. WILL CONTINUE TO MONITOR FURTHER.
[2019-07-10 04:35] VITALS: BP 104/44
[2019-07-10 07:29] VITALS: BP 148/78
[2019-07-10 11:01] VITALS: BP 136/51
--- NOTE | 2019-07-10 14:01 | NUR ---
ASSESSMENT: CM REVIEWED CHART AND MET WITH PATIENT AT THE BEDSIDE. PT WAS ADMITTED WITH ANKLE FX AND HAD SURGERY THIS WEEKEND. PT WAS FALLING ASLEEP DURING ASSESSMENT BUT ABLE TO ANSWER A FEW QUESTIONS. PT REPORTS LIVING WITH HER IN [place], [place]. PT HAS A RAMP TO ENTER THE HOME AND HAS A WHEELCHAIR/WALKER/CANE. PT HAS OXYGEN ARRANGED AT HOME BUT UNSURE OF PROVIDER. PT ALSO HAS NEBULIZER AND CPAP (PAST NOTE SAYS THROUGH [facility]). PT ALSO HAS A HOYFER LIFT. PT THEN FELL ASLEEP. CM ATTEMPTED TO REACH PATIENTS BUT VM WAS LEFT. CM DID SPEAK WITH PATIENTS SON WHO REPORTS THAT PATIENT HAS NEVER BEEN TO A SNF/REHAB. CM DISCUSSED PATIENT MAY NEED POST ACUTE CARE AND HE STATES IT WILL BE UP TO WHERE HIS FATHER DECIDES. CM LEFT VM FOR . CM WILL CONTINUE TO FOLLOW TO ASSIST NEEDED. 5N IS ALSO LOOKING AT PATIENT AND A CONSULT WAS PLACED.
[2019-07-10 15:57] VITALS: BP 127/51
[2019-07-10 19:45] VITALS: BP 121/56
--- NOTE | 2019-07-10 20:06 | NUR ---
Assumed care approx. 0700 this AM. Patient 02 sats adequate on 4LNC, but reported to drop when working with physical therapy. Patient turned Q2H. Nutritional intake has been poor, but diet has been advanced with no nausea or vomiting. Fall precautions in place. at bedside most of the day. Slow progression toward plan of care.
[2019-07-11 03:53] VITALS: BP 142/60
--- NOTE | 2019-07-11 06:20 | NUR ---
ASSUMED CARE AT 1900, ASSESSMENTS COMPLETED Q4H PER PROTOCOL. PT REPORTED LEFT LEG PAIN 5 OF 10 IN EVENING; GAVE ONE TAB NORCO; THIS AM, PT RATED PAIN A 7, GIVEN 2 TABS OF NORCO. DENIED NAUSEA. LEFT TOES HAD BRISK CAP REFILL, PINK COLOR, AND PT WAS ABLE TO SLIGHTLY WIGGLE TOES WITHOUT PAIN. SHALLOW RESPIRATORY EFFORT, WHILE AWAKE PT SATTING MID-HIGH 90'S ON 4L; BECAME SOB WHEN LYING MORE FLAT FOR REPOSITIONING OR TURNS; ONCE SHE FELL ASLEEP, SATS DROPPED TO 85%--PLACED ON BIPAP OVERNIGHT WHILE ASLEEP, SWITCHED BACK TO NC ABOUT 0500. DARK URINE OUT VIA FEMALE EXTERNAL CATH, WITH ONE INSTANCE OF INCONT EARLY IN SHIFT. NO OTHER CONCERNS, WILL CONTINUE TO MONITOR.
[2019-07-11 07:26] VITALS: BP 148/59
--- NOTE | 2019-07-11 08:14 | HC ---
[facility] [place] [address] CONSULTATION Name: MAGALY PIERSON Room #: 355-P ADM IN M.R.#: [id number] Admission: 07/08/19 Attend Phys: Kenji Ramirez MD Discharge: Date of : 36 Report #: [id number] THIS REPORT FOR: //name// CC: Mauri Ramirez DATE OF SERVICE: 07/10/2019 ENDOCRINOLOGY CONSULTATION. ATTENDING PHYSICIAN: Dr. Kenji Ramirez. REASON FOR CONSULTATION: Uncontrolled type 2 diabetes mellitus. HISTORY OF PRESENT ILLNESS: This is an 84-year-old female patient with a medical background significant for multiple issues including type 2 diabetes mellitus, chronic kidney disease and COPD. The patient arrived at [facility] following a fall that resulted in a left ankle fracture, which she sustained as she tripped over while trying to get out of her wheelchair. The patient underwent a left irrigation and debridement grade 2 open bimalleolar ankle fracture and open reduction and internal fixation yesterday and had an uneventful surgery. The patient says that she has been a diabetic for many years and while not sure if she is on any oral medications for diabetes, she did indicate that she takes Levemir insulin 22 units at bedtime. The patient notes that she does not check her blood glucose values often at all. However, she denies issues with hypoglycemia. The patient is not aware of issues of diabetic retinopathy, but notes occasional numbness and tingling in the feet. Also, the patient is hypothyroid and is maintained on levothyroxine 150 mcg daily. REVIEW OF SYSTEMS: CONSTITUTIONAL: Fatigue, tiredness, but no fever or chills. PULMONARY: Baseline COPD noted by exertional shortness of breath, intermittent cough, but no wheezes. CARDIAC: No chest pain, palpitations, or syncope. GASTROINTESTINAL: Occasional bloating, distention, discomfort, but not hematemesis or diarrhea. SKIN: Intermittent issues with bruising but not ecchymosis. No ulceration, no rash, no itching. NEUROLOGY: Negative for syncope, seizures, headaches. MUSCULOSKELETAL: Currently, the patient is in severe pain involving her left ankle, but notes intermittent issues with myalgias and arthralgias. PSYCHIATRIC: Mood swings, but no hallucinations or delusions. [address] [address] CONSULTATION Name: MAGALY PIERSON Room #: 355-P [facility] IN M.R.#: [id number] Admission: 07/08/19 Attend Phys: Kenji Ramirez MD Discharge: Date of : 36 Report #: [id number] Otherwise, review of systems noncontributory, other than those mentioned in the HPI. PAST MEDICAL HISTORY: 1. Atrial fibrillation. 2. Osteoarthritis. 3. Obesity. 4. Chronic obstructive pulmonary disease. 5. Type 2 diabetes mellitus. 6. Hypertension. 7. Iron deficiency. 8. Anemia. 9. Hypothyroidism. 10. Hyperlipidemia. 11. GERD. 12. Obstructive sleep apnea. 13. IVC filter placement in 2013. 14. Congestive heart failure. 15. Chronic kidney disease. OUTPATIENT MEDICATIONS: Losartan 25 mg daily, L-Lysine 1000 mg daily, ipratropium/albuterol q. 4 hours, ferrous sulfate 325 mg p.o. daily, calcium carbonate with vitamin D, Os-Bright 500/D3 daily, Lunesta 2 mg p.r.n. for sleep, diltiazem CD 180 mg daily, omega 3 fatty acids 1000 mg daily, K-Dur 20 mEq daily, Mucinex 600 mg q. 12 hours, amiodarone 200 mg daily, Demadex 20 mg daily, levothyroxine 150 mcg daily, Coreg 25 mg b.i.d., simvastatin 40 mg at bedtime, aspirin 81 mg daily, pantoprazole 40 mg daily, hydralazine 25 mg q. 8 hours, Levemir 22 units at bedtime. ALLERGIES: HEPARIN and PSEUDOEPHEDRINE. FAMILY HISTORY: Noted for heart disease, cancer. SOCIAL HISTORY: , lives with her . Ex-smoker. PHYSICAL EXAMINATION: GENERAL: This is an elderly female patient who is not in distress, but clearly uncomfortable and in pain. VITAL SIGNS: Blood pressure is 148/78 mmHg, heart rate is 99 beats per minute, respirations 20 per minute, temperature 36.7 degrees. HEENT: Anicteric sclerae. Intact ocular motions. NECK: No JVD, carotid bruits or lymphadenopathy. No appreciated thyromegaly. CHEST: Noted for distant breath sounds, rhonchi. No wheezes or crackles. HEART: Regular rate and rhythm without murmurs or gallops. ABDOMEN: Obese, but soft and lax without tenderness or organomegaly. She has active bowel sounds. [address] [address] CONSULTATION Name: MAGALY PIERSON Room #: 355-P [facility] IN M.R.#: [id number] Admission: 07/08/19 Attend Phys: Kenji Ramirez MD Discharge: Date of : 36 Report #: [id number] EXTREMITIES: Lower extremity exam, left ankle is in dressing. Trace ankle edema of the right lower extremity. NEUROLOGIC: Awake, alert and oriented to time, place and person. The remainder of the examination is grossly nonfocal, but is limited by her recent surgery. PSYCHIATRIC: The patient appears to be a bit stressed, itchy; however, she answered all my questions appropriately. SKIN: Scattered bruise carmona over both upper extremities. No ulceration, otherwise. LABORATORY DATA: Blood glucose values have ranged from 99-141 mg/dL. Sodium 137, potassium 4.9, chloride 94, CO2 40, anion gap 3, BUN 27, creatinine 1.7, AST 19, lipase 133, total bilirubin 0.3, direct bilirubin 0.1. Calcium 9.1, phosphorus 3.4, magnesium 2.1, alkaline phosphatase 81, ALT 18, total protein 6.9, albumin 3.3, GFR 29. Lactic acid 1.4. LDH 223, CPK 190. BNP 3596. Iron 19, TIBC 302. INR 1.0. Hemoglobin 8.0. TSH 4.65, free T4 1.2. ASSESSMENT AND PLAN: 1. Type 2 diabetes mellitus, uncontrolled. The patient is a long-term type 2 diabetic and is maintained on what appears to be Levemir insulin monotherapy. As noted above, the patient has stage IV chronic kidney disease and as such is fairly limited in terms of what oral medications she can be on. During her hospital stay so far, her blood glucose values have fallen within a reasonable range as noted above, between 99 and 141 mg/dL. That said, this is likely due to her significantly limited p.o. intake preoperatively. The patient continues to not feel like eating much. I suspect that as her p.o. intake improves going forward that we will need further support by resuming her full dose insulin and possibly Humalog supplemental scale. In the immediate setting, I will order hemoglobin A1c to further investigate her baseline state as well as continue to monitor her blood glucose values every 6 hours. I will also start Levemir 10 units at night tonight to ensure that the patient does not develop severe hyperglycemia over the next short period of time. 2. Hypothyroidism. The patient has longstanding history of hypothyroidism. Her most recent TSH is indicative of suboptimal control. That said, I will go ahead and raise her levothyroxine dose to 200 mcg daily. Further followup will be needed in 6-8 weeks from now. 3. Hyperlipidemia. The patient is currently on atorvastatin 40 mg daily. She is to continue with the current regimen. 4. Hypertension. The patient is currently on a combination of Cardizem-CD 180 mg daily, carvedilol 12.5 mg b.i.d. Blood pressure control is under adequate control. She is to continue current regimen. [address] [address] CONSULTATION Name: MAGALY PIERSON Room #: 355-P [facility] IN .R.#: [id number] Admission: 07/08/19 Attend Phys: Kenji Ramirez MD Discharge: Date of : 36 Report #: [id number] I certainly appreciate this consultation by Dr. Ramirez. <ELECTRONICALLY SIGNED> By: Alfredo Moran MD 07/11/19813 5 215 Alfredo Moran MD /margarette
[2019-07-11 11:05] VITALS: BP 147/76
--- NOTE | 2019-07-11 12:35 | NUR ---
Assess due to high BMI 49=extreme class III obesity. Pt advanced age 84, admitted with ankle fracture after fall from wheelchair. Hx dm. Seen by endocronologist, appetite significantly better today, ate 100%, BG well controlled. Wt has been variable 225-275 over past several years, current wt 259 lb. Low nutrition risk
--- NOTE | 2019-07-11 12:57 | NUR ---
ON-GOING ASSESSMENT: CM REVIEWED CHART. 5N HAS BEEN CONSULTED TO SEE PATIENT AND HAS YET TO DO EVALUATION. ALSO CM WAS NOTIFIED BY 5N THAT OT POST OP ORDERS WERE NOTE WRITTEN. CM NOTIFIED BEDSIDE RN WHO GOT POST OP OT ORDERS. CM NOTIFIED 5N AND THEY STATE THEY WILL HAVE OT COME SEE PATIENT. CM WAITING ON OT EVAL AND INPUT FROM 5N. CM ALSO ATTEMPTED TO CONTACT PATIENTS ED BUT NO ANSWER AND VM WAS LEFT.
[2019-07-11 15:44] LABS: HEMATOCRIT 20.8 % (37.0-47.0); HEMOGLOBIN 6.8 gm/dL (12.0-15.0); MCH 32.8 pg (26.0-34.0); MCHC 32.9 g/dL (28.0-37.0); MCV 99.9 fL (80.0-100.0); RBC 2.08 mil/uL (4.20-5.00); RDW 14.8 % (10.5-14.5); WBC 8.3 thou/uL (4.0-11.0)
[2019-07-11 15:47] VITALS: BP 137/57
--- NOTE | 2019-07-11 16:50 | NUR ---
PATIENT SEEN BY HANNAH ANDERSON NP WITH DR. LYNN, AND THERAPY EVALUATIONS ARE COMPLETE. AFTER REVIEWING THERAPY EVALUATION, IS RECOMMENDING SKILLED REHAB FOR PATIENT. CLOTH DESIZING RANGE TENDER INFORMED OF DECISION. THANK YOU FOR THIS REFERRAL.
--- NOTE | 2019-07-11 17:29 | HC ---
[facility] [place] [address] CONSULTATION Name: MAGALY PIERSON Room #: 355-P ADM IN M.R.#: [id number] Admission: 07/08/19 Attend Phys: Kenji Ramirez MD Discharge: Date of : 36 Report #: [id number] THIS REPORT FOR: //name// CC: Mauri Ramirez DATE OF SERVICE: 07/10/2019 INFECTIOUS DISEASE CONSULTATION REASON FOR CONSULTATION: Evaluate left ankle open fracture. HISTORY OF PRESENT ILLNESS: An 84-year-old underlying COPD, hypertension, chronic renal disease and diabetes, who 3 days ago in the keeper head hours was transferring from one chair to another when she twisted wrong and fell, suffering an open fracture to her left ankle. Seen initially at [facility] where she had initial attention to the wound and then transferred to [facility] for further orthopedic intervention. She is diabetic. No ongoing corticosteroids. Denied any fever, chills or sweats. He was taken to surgery yesterday for debridement and ORIF. No intraoperative complications. She received cefazolin perioperatively. This was switched to ceftriaxone today when a urinalysis came back with pyuria and bacteriuria. No urine culture is yet available. The patient denied any fever, chills or sweats and she had no dysuria, frequency or back pain. ALLERGIES: HEPARIN and SUDAFED. MEDICATIONS: As noted on her JAN, now on ceftriaxone. PAST MEDICAL HISTORY: Diabetes, coronary artery disease. Past smoker, obstructive sleep apnea, COPD, obesity, IVC filter for DVT, gastroesophageal reflux, heparin-induced thrombocytopenia, hypothyroidism, paroxysmal atrial fibrillation, pneumonia and congestive heart failure, chronic kidney disease, hypertension, left humerus fracture. FAMILY HISTORY: Noncontributory. SOCIAL HISTORY: Past smoker, no significant alcohol intake. REVIEW OF SYSTEMS: Ten-point review was otherwise negative other than what has been described above. PHYSICAL EXAMINATION: VITAL SIGNS: Afebrile and hemodynamically stable. GENERAL: She is alert and cooperative and pleasant, in no acute distress. SKIN: Without rash or decubitus. No palpable adenopathy. Moderately obese. [facility] [address] [place] [address] CONSULTATION Name: MAGALY PIERSON Room #: 355-P [facility] IN .R.#: [id number] Admission: 07/08/19 Attend Phys: Kenji Ramirez MD Discharge: Date of : 36 Report #: [id number] HEENT: Eyes, without scleral icterus. Mouth without mucositis. NECK: Supple. LUNGS: Clear. HEART: Regular, without murmur, gallop or rub. ABDOMEN: Soft, nontender, no hepatosplenomegaly or mass appreciated. EXTREMITIES: Left foot was in a splint, which was wrapped. Toes were warm to the touch. She had good capillary refill, had full movement in the toes. She had some bruising to her knee on the left, 1+ edema was evident. NEUROLOGIC: Cranial nerves intact. Strength in upper and lower extremities was otherwise normal. Sensation intact to fine touch. Mood was normal. BACK: Nontender. No CVA tenderness. LABORATORY STUDIES: Reviewed. Creatinine 1.7. Hemoglobin 8, WBC 7, platelet count 173,000. Urinalysis, pyuria and bacteriuria. Urine culture pending. No tissue samples available. IMPRESSION: 1. An 84-year-old status post ORIF, grade 2 open bimalleolar ankle fracture. Postoperative day #1. 2. Asymptomatic cystitis. 3. Diabetes. 4. Chronic kidney disease. 5. Chronic obstructive pulmonary disease. 6. Coronary artery disease. RECOMMENDATIONS: We will continue IV antibiotic therapy for 48 hours postop. We would recommend continuing cefazolin minimum of 48 hours postsurgical repair. Given the fact, she has urinary tract infection, we will await urine culture results before adjusting her antibiotic program further. <ELECTRONICALLY SIGNED> By: Jorge Canada MD 07/11/19 1729 [id number] Jorge Canada MD /nt
[2019-07-11 19:25] VITALS: BP 114/48
--- NOTE | 2019-07-11 19:43 | NUR ---
Assumed care approx. 0700 this AM. Patient oriented to person, place, and time but confused. Patient increased to 5LNC a couple times today for desats into the mid 80's. Dr. George notified of patient desat episodes with activity- chest x-ray ordered. Female external cath intact. Left leg surgical dressing intact. Patient's request beneprotein be ordered as she normally takes it twice a day, Dr. George approved. Patient took 100% of supplements this shift. OT ordered, NWB status noted. PT working with patient mobility. Right triple lumen midline intact. Patient's at bedside most of shift. Slow progression toward plan of care.
[2019-07-12] VITALS (7 sets, daily range): BP systolic 104–137; BP diastolic 53–96
[2019-07-12 03:49] LABS: MCV 100.5 fL (80.0-100.0)
[2019-07-12 03:50] LABS: HEMATOCRIT 20.8 % (37.0-47.0); HEMOGLOBIN 6.8 gm/dL (12.0-15.0); MCHC 32.8 g/dL (28.0-37.0); RBC 2.07 mil/uL (4.20-5.00); RDW 14.7 % (10.5-14.5); WBC 7.1 thou/uL (4.0-11.0)
[2019-07-12 03:51] LABS: ANION GAP < 0 mmol/L (7-16); BUN 32 mg/dL (7-18); CALCIUM 8.4 mg/dL (8.5-10.1); CHLORIDE 97 mmol/L (98-107); CO2 40 mmol/L (21-32); GLUCOSE 133 mg/dL (74-106); MAGNESIUM 2.1 mg/dL (1.8-2.4); POTASSIUM 4.7 mmol/L (3.5-5.1); SODIUM 136 mmol/L (136-145)
--- NOTE | 2019-07-12 05:30 | NUR ---
ASSUMED CARE AT 1900, ASSESSMENTS COMPLETED Q4 HOURS. PT REPORTS MINIMAL PAIN IN LEFT LEG, DECLINED PAIN MEDS OVERNIGHT. DENIES NAUSEA. RESPIRATIONS SHALLOW, FREQUENTLY ENCOURAGING DEEP BREATHING; AROUND 2129, PT TURNED IN BED VERY SLIGHTLY AND DOZED OFF, O2 SATS DROPPED TO 78-82%. TURNED O2 UP TO 6L, TOOK SEVERAL MINUTES FOR SAT TO RETURN TO 90'S; PLACED ON BIPAP AND SATS HELD IN UPPER 90'S, BUT PT C/O THE MASK HURTING HER FACE AND ONLY WORE IT FOR ABOUT 2 HOURS. PLACED BACK ON NC, ON 6L FOR ABOUT TWO HOURS, THEN ABLE TO TITRATE BACK DOWN TO 4L. LUNG SOUNDS COARSE WITH SOME RUB AND CRACKLES. HAS BEEN AFIB IN 80'S OVERNIGHT. LEFT TOES WARM AND PINK, ABLE TO WIGGLE THEM WITHOUT PAIN. NO OTHER CONCERNS, WILL CONTINUE TO MONITOR.
--- NOTE | 2019-07-12 12:09 | NUR ---
assessment: PT IS GETTING A UNIT OF BLOOD TODAY. 5N FEELS PATIENT IS TOO LOW LEVEL AND MORE APPROPRAITE FOR SNF AND CM SENT REFERRAL TO THEIR SNF OF CHOICE YESTERDAY [facility]. CM LEFT 2 VM WITH [facility] ADMISSION TODAY TO SEE IF THEY CAN ACCEPT PATIENT ONCE STABLE AND WAITING TO HEAR BACK. CM WILL CONTINUE TO FOLLOW TO ASSIST NEEDED.
[2019-07-12 17:32] LABS: BE(vivo) 11.6 mmol/L (-2 to +3); HCO3 40.5 mmol/L (22.0-26.0); PO2 82.9 mmHg (80.0-100.0)
[2019-07-12 17:33] LABS: PCO2 89.6 mmHg (35.0-45.0); pH 7.273 (7.360-7.450)
[2019-07-12 18:49] LABS: BE(vivo) 13.9 mmol/L (-2 to +3); HCO3 40.4 mmol/L (22.0-26.0); PCO2 66.2 mmHg (35.0-45.0); PO2 94.8 mmHg (80.0-100.0); pH 7.403 (7.360-7.450)
--- NOTE | 2019-07-12 20:19 | NUR ---
Assumed care approx. 0700 this AM. Patient drowsy much of the day, but became more lethargic later this afternoon. Vital were stable, but patient was shallow breathing and not taking in much air. ABG taken STAT with critical pH and C02 results. Dr. George verbally notified, RT to start bipap immediately. Second ABG done with improved results. at beside and very worried as his seemed more confused than usual. reassured and updated by this RN, RT and Dr. George. One unit of blood successfully tranfused today. Patient tolerated well. Vitals remained stable. Patient hasn't progressed much toward plan of care at this time.
[2019-07-13] VITALS (7 sets, daily range): BP systolic 120–128; BP diastolic 49–88
[2019-07-13 05:33] LABS: HEMATOCRIT 26.8 % (37.0-47.0)
[2019-07-13 05:34] LABS: HEMOGLOBIN 8.8 gm/dL (12.0-15.0)
--- NOTE | 2019-07-13 06:00 | NUR ---
ASSUMED CARE AT 1900. PT CONFUSED, ONLY ORIENTED TO HERSELF; PT C/O BIPAP MASK HURTING HER FACE, KEPT PULLING AT MASK, STRUGGLED TO UNDERSTAND WHY SHE NEEDED IT. REDNESS NOTED TO BRIDGE OF NOSE, PLACED FOAM UNDERNEATH THE MASK. SHE WAS ABLE TO FALL ASLEEP FOR SEVERAL HOURS WITH MASK; VERY LETHARGIC AND NOT REACTING MUCH TO STAFF ACTIONS LIKE VS AND PLACING A NEW IV. LUNG SOUNDS COARSE WITH CRACKLES, DIMINISHED IN BASES; SATTING ABOUT 94% ON BIPAP. PT WOKE UP THIS AM ABOUT 0400, UNABLE TO TOLERATE MASK D/T PAIN; SWITCHED TO NC AND GIVEN PAIN MEDICATION. GAVE PT A SPONGE BATH AND CHANGED LINENS, EXCORATION NOTED UNDER LEFT BREAST AND RIGHT PANNUS, PLACED INTERDRY AT BOTH SITES, CHANGED FEMALE EXTERNAL CATH, AND PULLED PT UP IN BED. PT ON 6L FOR ALL THIS SHE WAS VERY SOB; ABLE TO DECREASE DOWN TO 4L AT 0500 PT WAS SATTING AT 99%. PT MORE ALERT THIS AM, TALKING ABOUT HER CHILDREN, AND ABLE TO FOLLOW DIRECTIONS. NO OTHER CONCERNS, WILL CONTINUE TO MONITOR.
[2019-07-13 09:49] LABS: BE(vivo) 10.5 mmol/L (-2 to +3); HCO3 38.5 mmol/L (22.0-26.0); PO2 64.2 mmHg (80.0-100.0); sO2 89.8 % (92.0-98.0)
[2019-07-13 09:50] LABS: PCO2 75.9 mmHg (35.0-45.0); pH 7.323 (7.360-7.450)
--- NOTE | 2019-07-13 10:36 | NUR ---
PT WAS ON BIPAP THIS AM, PT ALERT, RT REMOVED BIPAP AND PLACED PT ON 4L NC. PT DID WELL FOR A SHORT WHILE ON NC, WAS ABLE TO EAT SOME YOGURT THAT HER BROUGHT UP TO HER. PT SPO2 94% ON THE 4L NC, PT NEEDED TO BE TURNED AND CHUX PAD CHANGED EXTERNAL FEMALE CATHETER HAD LEAKED SOME. PT WAS LAID DOWN FOR A VERY SHORT AMOUNT OF TIME AND TURNED TO CLEAN HER UP. PT SPO2 DROPPED TO 74%, PT BECAME DYSPNEIC AND TACHYPNEIC. PT WAS BREATHING THROUGH HER MOUTH, INSTRUCTED PT TO TAKE SLOW DEEP BREATHS THROUGH HER NOSE AND OUT HER MOUTH. PT SPO2 UP TO 84-86%, STILL DYSPNEIC AND TACHYPNEIC. RT PAGED TO SEE IF PT WOULD BENEFIT FROM FACE MASK SINCE SHE BREATHES THROUGH HER MOUTH SO MUCH AND HAS TO BE REMINDED TO BREATHE THROUGH HER NOSE. RT HAD RN PLACE NC IN MOUTH UNTIL THEY GOT TO ROOM. THIS DID NOT HELP WITH PT BREATHING OR SATURATION. RT DECIDED TO PLACE PT BACK ON BIPAP. DR MONTOYA IN ROOM NOW WELL, EXPLAINED TO HIM THE SITUATION, HE ORDERED CXR, ABG AND BNP. AT BEDSIDE, EXPLAINED SITUATION TO HIM. UNABLE TO GIVE PT PO MEDICATIONS AT THIS TIME. WILL CONTINUE TO REEVALUATE.
[2019-07-13 10:59] LABS: HEMATOCRIT 25.3 % (37.0-47.0); HEMOGLOBIN 8.3 gm/dL (12.0-15.0); MCH 32.2 pg (26.0-34.0); MCHC 32.7 g/dL (28.0-37.0); MCV 98.4 fL (80.0-100.0); RBC 2.57 mil/uL (4.20-5.00); RDW 15.7 % (10.5-14.5); WBC 5.5 thou/uL (4.0-11.0)
[2019-07-13 11:07] LABS: CALCIUM 8.7 mg/dL (8.5-10.1); CREATININE 1.8 mg/dL (0.6-1.0); MAGNESIUM 2.4 mg/dL (1.8-2.4); POTASSIUM 5.1 mmol/L (3.5-5.1)
--- NOTE | 2019-07-13 12:45 | NUR ---
ON-GOING ASSESSMENT: CM REVIEWED CHART AND SPOKE WITH ATTENDING. PT IS NOT MEDICALLY STABLE FOR DISCHARGE AT THIS TIME. PTS OXYGEN SAT DROPPED THIS AM AND PT IS DYSPNEIC. PT IS TO GET CHEST XRAY AND ABG. CM UPDATED [facility] THAT PATIENT IS NOT MEDICALLY STABLE FOR DISCHARGE BUT ALSO TRYING TO CLARIFY IF THEY CAN MEDICALLY ACCEPT PT WHEN STABLE. GISELE FROM [facility] ASKING HOW LONG PATIENT WILL BE NON-WEIGHT BEARING WELL NEEDING TO KNOW HOW SHE IS DOING WITH TRANSFERS. CM LEFT VM STATING SHE IS NON-WEIGHT BEARING AND WAS SUPPOSED TO FOLLOW UP WITH ORTHO THURS OR FRI AND PT HAS BEEN UNABLE TO WORK ON TRANSFER YET WITH PATIENT. CM WILL CONTINUE TO FOLLOW TO ASSIST NEEDED.
--- NOTE | 2019-07-13 16:44 | 2DMMODE ---
[facility] [address] [place] [address] 2 D/M-MODE ECHOCARDIOGRAM Name: MAGALY PIERSON Room #: 355-P ADM IN M.R.#: [id number] Admission: 07/08/19 Attend Phys: Kenji Ramirez MD Discharge: Date of : 37 Date of Service: 07/13/19 1644 Report #: [id number] THIS REPORT FOR: //name// APPROVED REPORT Study performed: 07/13/2019 15:14:28 EXAM: Comprehensive 2D, Doppler, and color-flow Echocardiogram Patient Location: Bedside Room #: 355 Status: routine BSA: 2.11 HR: 91 bpm BP: 125/55 mmHg Rhythm: Atrial Fibrillation Other Information Study Quality: Adequate/Technically Difficult Technically limited study due to body habitus, inability to position patient. Indications COPD Diabetes Atrial Fibrillation Hypertension/HDD fluid overload 2D Dimensions RVDd: 44.07 mm IVSd: 16.26 (7-11mm) LVOT Diam: 19.56 (18-24mm) LVDd: 42.42 mm PWd: 15.97 (7-11mm) Ascending Ao: 20.96 (22-36mm) LVDs: 32.05 (25-40mm) Aortic Root: 25.78 mm IVC: 24.00 mm Volumes Left Atrial Volume (Systole) Single Plane 4CH: 134.52 mL Single Plane 2CH: 103.09 mL LA ESV Index: 60.00 mL/m2 Aortic Valve AoV Peak Lavell.: 2.59 m/s AO Peak Gr.: 26.86 mmHg LVOT Max P.09 mmHg AO Mean Gr.: 16.01 mmHg LVOT Mean P.54 mmHg [facility] [address] [place] [address] 2 D/M-MODE ECHOCARDIOGRAM Name: MAGALY PIERSON Room #: 355-[facility] IN ..#: [id number] Admission: 07/08/19 Attend Phys: Kenji Ramirez MD Discharge: Date of : 37 Date of Service: 07/13/19 1644 Report #: [id number] AO V2 Mean: 1.91 m/s LVOT Max V: 0.88 m/s AO V2 VTI: 60.11 cm LVOT Mean V: 0.56 m/s NEDRA (VTI): 0.89 cm2 LVOT V1 VTI: 17.89 cm NEDRA Vmax: 1.02 cm2 SV (LVOT): 53.74 mL Mitral Valve MV Peak Gr.: 19.48 mmHg MV Mean Gr.: 6.17 mmHg MV Max Lavell.: 2.21 m/s MV Mean Lavell.: 1.10 m/s MV VTI: 457.21 mm MVA VTI: 117.53 mm2 IVRT: 62.28 ms Pulmonary Valve PV Peak Lavell.: 1.07 m/s PV Peak Gr.: 4.57 mmHg Tricuspid Valve TR Peak Lavell.: 3.62 m/s RAP Estimate: 15.00 mmHg TR Peak Gr.: 52.49 mmHg PA Pressure: 68.00 mmHg Left Ventricle The left ventricle is normal size. There is normal LV segmental wall motion. Moderate concentric left ventricular hypertrophy. The overall left ventricular systolic function appears normal. LVEF is 55-60%. This study is not technically sufficient to allow evaluation of the LV diastolic function due to atrial fibrillation. Right Ventricle The right ventricle is normal size. The right ventricular systolic function is normal. Atria Left atrium is severely dilated. Right atrium is severely dilated. Aortic Valve Aortic valve is calcified. Trace aortic regurgitation. There is moderate valvular aortic stenosis. Calculated aortic valve area is 1.0 cm2 with maximum pressure gradient of 27 mmHg and mean pressure gradient of 16 mmHg. Mitral Valve Moderate to severe mitral annular calcification. Moderate mitral [facility] [address] [place] [address] 2 D/M-MODE ECHOCARDIOGRAM Name: MAGALY PIERSON Room #: 355-[facility] IN ..#: [id number] Admission: 07/08/19 Attend Phys: Kenji Ramirez MD Discharge: Date of : 37 Date of Service: 07/13/19 1644 Report #: [id number] regurgitation. Moderate mitral stenosis. Calculated mitral valve area is 1.2 cm2 with maximum pressure gradient of 20 mmHg and mean pressure gradient of 6 mmHg. Tricuspid Valve The tricuspid valve is normal in structure. Severe tricuspid regurgitation. PAP is estimated at 68 mmHg. Pulmonic Valve The pulmonary valve is normal in structure. There is no pulmonic valvular regurgitation. Great Vessels The aortic root is normal in size. IVC is dilated and collapses <50% with inspiration. Pericardium There is no pericardial effusion. <Conclusion> The overall left ventricular systolic function appears normal. There is normal LV segmental wall motion. EF 60% Moderate concentric left ventricular hypertrophy. Both atria are severely dilated. Aortic valve is calcified, moderately stenotic. Calculated aortic valve area is 1.0 cm2 with maximum pressure gradient of 27 mmHg and mean pressure gradient of 16 mmHg. Moderate to severe mitral annular calcification. Moderate mitral regurgitation. Moderate mitral stenosis Calculated mitral valve area is 1.2 cm2 with maximum pressure gradient of 20 mmHg and mean pressure gradient of 6 mmHg. Severe tricuspid regurgitation. Pulmonary artery pressure estimated at 68 mmHg. There is no pericardial effusion. <ELECTRONICALLY SIGNED> By: Yogi Bower MD, FACC 07/13/19 1644 1644 1644 Yogi Bower MD, FACC /INF
[2019-07-13 17:03] LABS: BE(vivo) 12.7 mmol/L (-2 to +3); HCO3 40.1 mmol/L (22.0-26.0); PCO2 72.2 mmHg (35.0-45.0); PO2 70.8 mmHg (80.0-100.0); pH 7.362 (7.360-7.450); sO2 92.9 % (92.0-98.0)
--- NOTE | 2019-07-13 18:18 | NUR ---
REPORT GIVEN TO [facility] ICU.
--- NOTE | 2019-07-13 19:02 | NUR ---
PT TRANSFERRED VIA BED TO ICU ROOM 238. AWARE. ALL BELONGINGS SENT WITH PT. MEDICATIONS ALSO SENT.
[2019-07-14] VITALS (21 sets, daily range): BP systolic 95–142; BP diastolic 62–98
[2019-07-14 04:35] LABS: ALBUMIN 2.7 g/dL (3.4-5.0); CALCIUM 8.9 mg/dL (8.5-10.1); CREATININE 1.8 mg/dL (0.6-1.0); POTASSIUM 4.4 mmol/L (3.5-5.1); TOTAL BILIRUBIN 0.3 mg/dL (<0.1-1.0)
[2019-07-14 04:38] LABS: HEMATOCRIT 24.2 % (37.0-47.0); HEMOGLOBIN 8.1 gm/dL (12.0-15.0); MCH 32.2 pg (26.0-34.0); MCHC 33.4 g/dL (28.0-37.0); MCV 96.5 fL (80.0-100.0); RBC 2.51 mil/uL (4.20-5.00); RDW 15.1 % (10.5-14.5); WBC 4.5 thou/uL (4.0-11.0)
[2019-07-14 04:57] LABS: BE(vivo) 13.3 mmol/L (-2 to +3); HCO3 40.2 mmol/L (22.0-26.0); PCO2 66.8 mmHg (35.0-45.0); pH 7.397 (7.360-7.450); sO2 92.8 % (92.0-98.0)
--- NOTE | 2019-07-14 06:38 | NUR ---
Pt continues to be confused, has been seen pulling at the BiPaP mask, and required a right wrist soft restraint. Her ABG's showed a decrease in her pCo2, but also a decrease on her pO2, settings were adjusted per pulm. A triple lumen PICC was placed last night, and her peripheral IV was displaced. Will continue to monitor.
--- NOTE | 2019-07-14 09:13 | NUR ---
VASCULAR ACCESS NOTE ORDER PLACED ON 07/13/19 FOR PICC PLACEMENT. CONSENT OBTAINED AND PROCEDURE PERFORMED ON 07/13/19 @ 2045. PICC PLACED PER HOSPITAL P&P. PATIENT WAS UNCOOPERATIVE SO ASSISTANCE X 1 WAS NEEDED. R BASILIC VEIN WAS WIDELY PATENT. PATIENT PREPPED AND DRAPED WITH STERILE PRECUATIONS. LIDOCAINE 1% 3ML WAS GIVEN SUB Q. VEIN CANNULATED WITH ONE ATTEMPT. GUIDEWIRE ADVANCED EASILY. VEIN DILATED AND GUIDEWIRE REMOVED INTACT. 5Fr TL PICC TRIMMED TO 46CM WAS ADVANCED EASILY TO 45CM INTERNAL AND 1CM EXTERNAL. ALL LUMENS FLUSH AND DRAW EASILY. CXR VERIFICATION FOR PLACEMENT. STAT CXR SHOT AT 2130 WAS READ AT 0815 ON 07/14/19 LINE RELEASED FOR USE AT THIS TIME.
--- NOTE | 2019-07-14 10:24 | NUR ---
TRANSFERRED TO ICU FOR RESP FAILURE AND NOW ON BIPAP. DC PLAN UP TO NOW IS SKILLED REHAB AT DC AND [facility] HAS REFERRAL BUT HAS NOT ACCEPTED YET. DC RETAIL PRESENTATION SPECIALIST REQUESTED TO UPDATE [facility] OF CHANGE IN STATUS AND WILL UPDATE AGAIN WEDNESDAY.
--- NOTE | 2019-07-14 16:51 | NUR ---
HAS BEEN ON BIPAP ALL DAY, VITALS STABLE. DROWSY BUT AWAKENS EASILY AND WHEN AWAKE IS ORIENTED AND CONVERSATIONAL WITH AND RN. HAS DENIED PAIN ALL DAY. ANEESH WRAP NOTED ON LLE. ABLE TO WIGGLE TOES AND TOES AND LEG WARM. WILL SWITCH BIPAP TO NC WHEN PATIENT READY TO EAT IF SHE TOLERATES. WILL CONTINUE TO MONITOR CLOSELY AND CONTINUE WITH POC.
--- NOTE | 2019-07-14 17:18 | NUR ---
PATIENT'S RING FINGER EDEMATOUS, PATIENT REFUSES FOR TAKE OFF RING AND GIVE TO . RN EXPLAINED THE RISKS OF CUTTING OFF CIRCULATION TO THE FINGER, PRESENT DURING THIS CONVERSATION. PATIENT STATES SHE DOES NOT WANT RING OFF.
[2019-07-15] VITALS (23 sets, daily range): BP systolic 93–189; BP diastolic 31–95
[2019-07-15 05:24] LABS: BE(vivo) 13.4 mmol/L (-2 to +3); HCO3 40.1 mmol/L (22.0-26.0); PCO2 64.8 mmHg (35.0-45.0); pH 7.409 (7.360-7.450); sO2 85.3 % (92.0-98.0)
[2019-07-15 05:25] LABS: PO2 51.3 mmHg (80.0-100.0)
[2019-07-15 06:28] LABS: ABSOLUTE NEUTROPHILS 4.2 thou/uL (1.4-8.2); BASOPHILS 0.1 % (0.0-2.0); HEMATOCRIT 25.1 % (37.0-47.0); HEMOGLOBIN 8.2 gm/dL (12.0-15.0); LYMPHOCYTES 2.5 % (24.0-44.0); MCH 32.2 pg (26.0-34.0); MCHC 32.9 g/dL (28.0-37.0); MCV 97.9 fL (80.0-100.0); MONOCYTES 5.4 % (1.0-8.0); PLATELET COUNT 203 thou/uL (150-400); RBC 2.56 mil/uL (4.20-5.00); WBC 4.5 thou/uL (4.0-11.0)
[2019-07-15 06:43] LABS: ALBUMIN 2.8 g/dL (3.4-5.0); CALCIUM 8.8 mg/dL (8.5-10.1); CREATININE 1.9 mg/dL (0.6-1.0); POTASSIUM 4.2 mmol/L (3.5-5.1); TOTAL BILIRUBIN 0.3 mg/dL (<0.1-1.0); TOTAL PROTEIN 6.8 g/dL (6.4-8.2)
--- NOTE | 2019-07-15 06:45 | NUR ---
Pt awake off and on through the night with stable VS. Unable to tolerate wearing BiPap and SpO2 remain adequate on current FiO2. PRN fentanyl given for c/o generalized discomfort with desired effect achieved. Urine output marginal for shift, no c/o nausea and no BM observed. Am lab results pending, continue with POC.
--- NOTE | 2019-07-15 13:51 | NUR ---
OT ASSISTED NURSING IN TRANSFERRING PT FROM RECLINER BACK TO BED USING AGUSTINA LIFT AND 3 STAFF ASSIST AT 1300
--- NOTE | 2019-07-15 18:15 | NUR ---
SHIFT SUMMARY: PT UP TO CHAIR IN AM WITH 2 ASSIST. L KNEE AND LOWER EXTREMITY ELEVATED WHILE UP IN CHAIR. REQUESTING TO GO BACK TO BED, ENCOURAGING PT TO REMAIN UP FOR LONGER PERIOD OF TIME TO ALLOW HER TO TAKE DEEP BREATHS AND COUGH MORE EFFECTIVELY. REMAINED IN CHAIR FOR SEVERAL HOURS. ATTEMPTED TO ASSIST PT BACK TO BED WITH PHYSICAL THERAPY ASSIST AND 2 RNS. NO WEIGHT BEARING ON L LOWER EXTREMITY AND PT UNABLE TO RAISE HERSELF UP OFF CHAIR WITH R LEG. PT RETURNED TO BED WITH ASSISTANCE OF AGUSTINA LIFT, PHYSICAL THERAPY AND 2 RNS. WHEN RETURNED TO BED, PT TIRED AND RESTED INTERMITTENTLY DURING AFTERNOON. REMAINED AT BEDSIDE PROVIDING SUPPORT. ADDITIONAL CONSULT FOR CARDIOLOGY. PAIN CONTROLLED WITH PO PAIN MED, BNP 25,000- LASIX GIVEN WITH 675 CC URINE OUTPUT, REMAINS ON 4L/NC, SOA WITH ACTIVITY, POOR APPETITE. N0T PROGRESSING.
[2019-07-16] VITALS (24 sets, daily range): BP systolic 116–160; BP diastolic 31–65
[2019-07-16 06:05] LABS: BE(vivo) 15.5 mmol/L (-2 to +3); HCO3 42.8 mmol/L (22.0-26.0); PO2 80.5 mmHg (80.0-100.0); pH 7.386 (7.360-7.450); sO2 95.2 % (92.0-98.0)
[2019-07-16 06:05] LABS: BASOPHILS 0.1 % (0.0-2.0); HEMATOCRIT 23.7 % (37.0-47.0); HEMOGLOBIN 7.9 gm/dL (12.0-15.0); LYMPHOCYTES 2.7 % (24.0-44.0); MCH 31.9 pg (26.0-34.0); MCHC 33.1 g/dL (28.0-37.0); MCV 96.2 fL (80.0-100.0); MONOCYTES 5.7 % (1.0-8.0); PLATELET COUNT 183 thou/uL (150-400); POLYS 91.5 % (36.0-66.0); RBC 2.47 mil/uL (4.20-5.00); RDW 14.8 % (10.5-14.5); WBC 3.3 thou/uL (4.0-11.0)
[2019-07-16 06:18] LABS: ALBUMIN 2.6 g/dL (3.4-5.0); CALCIUM 8.4 mg/dL (8.5-10.1); CREATININE 1.9 mg/dL (0.6-1.0); POTASSIUM 3.7 mmol/L (3.5-5.1); TOTAL BILIRUBIN 0.3 mg/dL (<0.1-1.0); TOTAL PROTEIN 6.3 g/dL (6.4-8.2)
--- NOTE | 2019-07-16 07:36 | NUR ---
Pt tolerated bipap from 2150 untill 0600. Slept most of night. Diuresed well from Lasix (1600 cc this shift.) Pain med for generalized pain given at beginning of shift with adequate relief obtained. Monitor remains AV paced/V paced, occasional PVC's.
--- NOTE | 2019-07-16 12:43 | NUR ---
0800-Pt was awake and oriented x 4, very pleasant. No murmur was auscultated although pt said that she has had murmur long time. Edema +2-+3 on RLE. V. Paced rhythm w/ failure to capture & no Paced rhythm on the same 6 min strip. Dressing on LLE is intact, clean. BS 224. 1200-BS was increased to 307. Talked to Dr. Brown, central office associate. Pt refused to be transferred to chair, saying that she did yesterday and she wanted to stay on bed.
[2019-07-17] VITALS (18 sets, daily range): BP systolic 118–161; BP diastolic 31–67
--- NOTE | 2019-07-17 04:57 | NUR ---
ASSESSMENT CHARTED. VSS. VPACED AFIB. PT DENIES PAIN. 4 L NC. BIPAP HS, WORN UNTIL SHORTLY AFTER 0400 PT COULDNT TOLERATE. Q2 TURNS. SILVA IN PLACE GOOD OUTPUT WITH LASIX PER EMAR. PT REQUESTED LOWER DOSE LANTUS SEE EMAR. PLAN FOR LABS THIS AM. WILL CONTINUE TO MONITOR AND WITH POC.
[2019-07-17 05:12] LABS: HCO3 38.6 mmol/L (22.0-26.0); PCO2 64.1 mmHg (35.0-45.0); PO2 66.5 mmHg (80.0-100.0); pH 7.398 (7.360-7.450); sO2 92.5 % (92.0-98.0)
[2019-07-17 05:25] LABS: ABSOLUTE NEUTROPHILS 4.2 thou/uL (1.4-8.2); BASOPHILS 0.1 % (0.0-2.0); HEMATOCRIT 24.7 % (37.0-47.0); HEMOGLOBIN 8.2 gm/dL (12.0-15.0); LYMPHOCYTES 2.5 % (24.0-44.0); MCH 31.7 pg (26.0-34.0); MCHC 33.2 g/dL (28.0-37.0); MCV 95.7 fL (80.0-100.0); MONOCYTES 6.3 % (1.0-8.0); PLATELET COUNT 200 thou/uL (150-400); POLYS 91.1 % (36.0-66.0); RBC 2.58 mil/uL (4.20-5.00); RDW 14.2 % (10.5-14.5); WBC 4.6 thou/uL (4.0-11.0)
[2019-07-17 05:52] LABS: ALBUMIN 2.7 g/dL (3.4-5.0); CALCIUM 8.3 mg/dL (8.5-10.1); CREATININE 1.9 mg/dL (0.6-1.0); POTASSIUM 3.1 mmol/L (3.5-5.1); TOTAL BILIRUBIN 0.3 mg/dL (<0.1-1.0); TOTAL PROTEIN 6.5 g/dL (6.4-8.2)
--- NOTE | 2019-07-17 11:42 | NUR ---
ALERT AND ORIENTED AND HAS DENIED PAIN. VITALS STABLE. ON 4L PER NC AND NO RESP DISTRESS NOTE. TOLERATING DIET W/O NAUSEA. PLACED ON THE BEDPAN FEW TIMES WITH MINIMAL RESULTS, MIRALAX ADMINISTERED. AT THE BEDSIDE MOST OF THE MORNING.
--- NOTE | 2019-07-17 15:27 | NUR ---
FAXED CLINICAL UPDATE TO [facility] LEFT MSG WITH NANCY IN ADM THAT PT WILL NEED BIPAP AT NIGHT AND ANTICIPATE DC TOMORROW OR WEDNESDAY. DCP TO FOLLOW.
--- NOTE | 2019-07-17 18:15 | NUR ---
PATIENT TRANSFERRED TO [facility] ACCOMPANIED BY .
--- NOTE | 2019-07-17 19:26 | NUR ---
PT TX FROM ICU...FALL PREC IN PLACE...SPOUSE AT BEDSIDE...
--- NOTE | 2019-07-18 02:52 | NUR ---
ASSUMED CARE FROM DAY SHIFT, PT TALKING WITH ALERT AND ORIENTED TO SELF PLACE AND TIME, LATER AROUND 2300 PT BECAME CONFUSED CALLING 911 , SON NUNU CALLED AND PT WAS ABLE TO TALK WITH SON , PT BECAME CALMER AND ASK FOR BIPAP WHEN SHE REFUSED. PT THEN RESTED WELL THROUGHOUT FREQ ROUNDING.
[2019-07-18 04:14] VITALS: BP 164/57
[2019-07-18 07:43] VITALS: BP 171/63
--- NOTE | 2019-07-18 08:02 | NUR ---
CLINICAL INFO REVIEWED. PT TRANSFERRED FROM ICU TO 3W YESTERDAY. LEFT ORIF 07/09 COMPLICATED BY RESP FAILURE. DC PLAN HAS BEEN SKILLED REHAB AND PT/SPOUSE CHOICE OF FACILITY IF [facility]. REACHED OUT TO FACILITY ADMISSIONS 07/14 AND 07/17 AND FAXED UPDATES BUT HAVE YET TO CONNECT WITH ADMISSIONS FOR FINAL DECISION ON ACCEPTANCE. PT IS NWB ON LEFT AND NEED TO DETERMINE TIME FOR THAT, NOTED ORTHO SIGNED OFF DAYS AGO. PT ON 4 LITERS NC O2 IN DAY AND ORDERED BIPAP FOR SLEEP BUT PT REFUSES BIPAP AT TIMES. PT IS MAX ASSIST FOR TRANSFERS PER PT NOTES FROM 07/17/19 AND STAFF USING AGUSTINA LIFT NWB ON LEFT AND DEBILITATED. CONTINUES TO DIURESE ON LASIX 80 IV BID. WILL UPDATE 3W RN AND BULKING MACHINE OPERATOR SCRAPER BURRER.
--- NOTE | 2019-07-18 10:15 | NUR ---
Followup: has transferred out of ICU. Tolerating diet. Wts variable this admit 250-259 lb with need for diuresis due to CHF. BG being managed by endocronologist. Intake 75-100%. Remains low nutrition risk
[2019-07-18 11:23] LABS: ALBUMIN 2.8 g/dL (3.4-5.0); BUN 77 mg/dL (7-18); CHLORIDE 91 mmol/L (98-107); CREATININE 1.8 mg/dL (0.6-1.0); GLUCOSE 267 mg/dL (74-106); POTASSIUM 3.3 mmol/L (3.5-5.1); SGOT 17 U/L (15-37); SGPT 15 U/L (30-65); SODIUM 138 mmol/L (136-145); TOTAL BILIRUBIN 0.3 mg/dL (<0.1-1.0); TOTAL PROTEIN 6.1 g/dL (6.4-8.2)
[2019-07-18 11:28] LABS: CO2 > 45 mmol/L (21-32)
--- NOTE | 2019-07-18 11:52 | NUR ---
Following for d/c planning needs. Called admissions at [facility]. The facility currently does not have an sterile process coordinator. Spoke with DON. She said that linux server administrator at facility said they are not trained to handle BiPAP and decline patient at this time. Spoke with pt and spouse. Spouse said he would talk with family member re: other recommendations in [facility]. Pt and spouse given SNF list. Pt and spouse are agreeable with referral being sent to [facility] in [place]. Spoke with sterile process coordinator at facility and emailed referral (their phone lines are currently down). Received telephone call back from facility. They are clinically able to accept pt today, but they are not in network with pt's secondary insurance. Pt would either be discharged from their facility after the 20 Medicare day stay, or have to pay co-pay. Will remain available to assist as needed.
[2019-07-18 12:30] VITALS: BP 175/81
[2019-07-18 16:12] VITALS: BP 145/66
--- NOTE | 2019-07-18 16:35 | NUR ---
PT ALERT AND ORIENTED TIMES FOUR, WITH PERIODS OF CONFUSION. BP ELEVATED THIS SHIFT NOTIFIED, PRN BP MEDICATIONS ORDERED AND GIVEN BP NOW 145/66. OTHER VSS PT DENIES PAIN/SOA, SILVA TO DD. SR ON TELE, ANEESH/SPLINT IN PLACE ON LEFT LEG. PT TOLERATES MEDS AND MEALS. PT AT BEDSIDE FOR MOST OF THE SHIFT. PT SLOWLY PROGRESSING TOWRADS POC GOALS.
[2019-07-18 19:26] VITALS: BP 168/50
--- NOTE | 2019-07-19 03:50 | NUR ---
ASSUMED CARE AT 1900. PT A&Ox4 AND ANSWERING QUESTIONS APPROPRIATELY, SIGNED TELE DISCLAIMER. C/O DRY/CONGESTED THROAT AND SLIGHT COUGH, REQUESTED A COUGH DROP, GIVEN CEPACOL LOZENGE FOR GOOD RELIEF. REPORTED LEFT SHOULDER/ARM FELT WEAK BUT DENIED PAIN; RIGHT HAND DRUG ENFORCEMENT AGENT 2+, LEFT HAND A 1+. SATTING MID 90'S ON 4-5L O2, WORE BIPAP FOR ABOUT FOUR HOURS BEFORE ASKING TO HAVE IT OFF. LEFT TOES WARM AND PINK WITH BRISK CAP REFILL. HAS BEEN AFIB WITH FREQ PVC'S AND V-PACER SPIKES, HR IN 80'S. SILVA DRAINING TRUJILLO URINE. NO OTHER CONCERNS, WILL CONTINUE TO MONITOR.
[2019-07-19 04:11] VITALS: BP 148/62
[2019-07-19 05:34] LABS: ALBUMIN 2.8 g/dL (3.4-5.0); CALCIUM 8.1 mg/dL (8.5-10.1); CREATININE 1.7 mg/dL (0.6-1.0); POTASSIUM 4.1 mmol/L (3.5-5.1); TOTAL BILIRUBIN 0.4 mg/dL (<0.1-1.0); TOTAL PROTEIN 6.1 g/dL (6.4-8.2)
[2019-07-19 07:21] VITALS: BP 153/53
[2019-07-19] MEDS ORDERED: NOVOLOG100 UNIT/1 SUBQ (09:00)
[2019-07-19] MEDS ORDERED: CARDIZEM CD240 MG PO (09:00)
[2019-07-19] MEDS ORDERED: DEMADEX20 MG PO (09:00)
[2019-07-19 11:17] VITALS: BP 144/55
--- NOTE | 2019-07-19 13:45 | NUR ---
DISCHARGE NOTE: ZULEYMA reviewed chart and spoke with nursing and attending physician. Pt is medically stable for discharge to [facility] today. ZULEYMA spoke with Ivone in admissions to provide update. Bariatric bed to be delivered today. Stretcher van transportation scheduled at 1700 per facility's arrangements. ZULEYMA faxed final discharge orders/summary to facility. ZULEYMA met with pt and spouse at bedside to discuss discharge plan. Both are aware and agreeable with discharge plan. Vendor Choice Form signed and placed on pt's chart. Chart copied. Nursing to call report. SW is following to assist as needed with discharge planning.
[2019-07-19 16:06] VITALS: BP 154/65
[2019-07-19 18:16] VITALS: BP 154/65
--- NOTE | 2019-07-19 19:47 | NUR ---
PATIENT ALERT AND ORIENTED WITH AT BEDSIDE. REMOVED SILVA PER PROVIDER INSTRUCTIONS. VERY INVOLVED WITH PATIENT CARE. GRACIA OT, INDICATED PATIENT SHOULD WEAR SLING ON LEFT ARM DUE TO INJURY OF BICEPTS WHEN PATIENT UP TO CHAIR. PATIENT DISCHARGE TO [facility] IN [place], IN STABLE CONDITION WITH DISCHARGE ORDERS AND CHART COPY, PERSONAL BELONGINGS. PATIENT TRANSPORTED VIA STETCHER WITH TRANSPORT COMPANY. PATIENT ON 4L NC O2 FOR TRANSPORT. REPORT GIVEN TO SURINDER MEYERS AT [place].
== END 2019-07-19 18:36 | DRG 492 ==
LOC: 3W 10:45 → ICU 12:37 → 3W 07-17 17:57
PROVIDERS: Hospitalist; Internal Medicine; Nurse Practitioner; Pediatrics; ADMIT Internal Medicine
DX: S82.842B Displaced bimalleolar fracture of left lower leg, initial encounter for open fracture type I or II (principal); J96.22 Acute and chronic respiratory failure with hypercapnia; J96.21 Acute and chronic respiratory failure with hypoxia; J18.9 Pneumonia, unspecified organism; I50.33 Acute on chronic diastolic (congestive) heart failure; N39.0 Urinary tract infection, site not specified; Z68.42 Body mass index [BMI] 45.0-49.9, adult; N18.4 Chronic kidney disease, stage 4 (severe); D62 Acute posthemorrhagic anemia; J98.11 Atelectasis; N17.9 Acute kidney failure, unspecified; I38 Endocarditis, valve unspecified; G93.40 Encephalopathy, unspecified; I44.2 Atrioventricular block, complete; J44.0 Chronic obstructive pulmonary disease with (acute) lower respiratory infection; I13.0 Hypertensive heart and chronic kidney disease with heart failure and stage 1 through stage 4 chronic kidney disease, or unspecified chronic kidney disease; E11.22 Type 2 diabetes mellitus with diabetic chronic kidney disease; E66.01 Morbid (severe) obesity due to excess calories; M19.90 Unspecified osteoarthritis, unspecified site; E61.1 Iron deficiency; E78.5 Hyperlipidemia, unspecified; G47.33 Obstructive sleep apnea (adult) (pediatric); K21.9 Gastro-esophageal reflux disease without esophagitis; E03.9 Hypothyroidism, unspecified; E11.65 Type 2 diabetes mellitus with hyperglycemia; I48.0 Paroxysmal atrial fibrillation; I25.10 Atherosclerotic heart disease of native coronary artery without angina pectoris; I27.20 Pulmonary hypertension, unspecified; I35.0 Nonrheumatic aortic (valve) stenosis; I05.2 Rheumatic mitral stenosis with insufficiency; G47.00 Insomnia, unspecified; D63.1 Anemia in chronic kidney disease; M81.0 Age-related osteoporosis without current pathological fracture; E87.70 Fluid overload, unspecified; B96.4 Proteus (mirabilis) (morganii) as the cause of diseases classified elsewhere; Z95.828 Presence of other vascular implants and grafts; Z88.8 Allergy status to other drugs, medicaments and biological substances; Z87.891 Personal history of nicotine dependence; Z79.4 Long term (current) use of insulin; I25.2 Old myocardial infarction; Z82.49 Family history of ischemic heart disease and other diseases of the circulatory system; Z79.82 Long term (current) use of aspirin; Z79.899 Other long term (current) drug therapy; Z47.89 Encounter for other orthopedic aftercare; Z99.81 Dependence on supplemental oxygen; W18.39XA Other fall on same level, initial encounter; Y93.89 Activity, other specified; Y92.89 Other specified places as the place of occurrence of the external cause; Y99.8 Other external cause status
CPT/HCPCS: 10078; 10879; 27000; 50010; 50101; 50343; 50386; 51122; 51131; 51412; 53078; 56524; 56525; 56667; 57091; 57103; 57181; 62110; 62900; 64039; 64043; 65060; 65130; 70005

== ENCOUNTER 2019-07-19 23:43 | Emergency (ER) | payer OTHER, BC ==
[~2019-07-19] VITALS: Ht 160 cm; Wt 112.0 kg
[~2019-07-19 23:43] MED LIST changes: +IPRAT-ALBUT 0.5-3 ML IH; +L-LYSINE1000 M1 PO; +NOVOLOG100 UNIT/1 SUBQ
[2019-07-20 11:45] VITALS: BP 176/81
--- NOTE | 2019-07-20 16:06 | EKG ---
[address] [place] [address] ELECTROCARDIOGRAM REPORT Name: MAGALY PIERSON [id number] Admission: 07/19/19 Attend Phys: Discharge: 07/20/19 Date of : 37 Report #: [id number] THIS REPORT FOR: //name// [facility] ED Test Date: 2019-07-19 Test Time: 23:51:46 Pat Name: MAGALY PIERSON Department: Room: Gender: F Graphic Production Artist: KMD : [id number] Requested By: Jorge Rojas Order Number: [id number] MD: Yogi Bower Measurements Intervals [place] Rate: 99 P: 0 TN: 88 QRS: 178 QRSD: 145 T: -22 QT: 389 QTc: 500 Interpretive Statements Atrial fibrillation with intermittent ventricular pacing No further rhythm analysis attempted due to paced rhythm Right bundle branch block Compared to ECG 07/08/2019 15:57:52 Intermittent ventricular pacing is now present Electronically Signed On 07-20-2019 16:05:57 CDT by Yogi Bower [email or web address] <ELECTRONICALLY SIGNED> By: Yogi Bower MD, [facility] 07/20/19 1605 2351 [id number] Yogi Bower MD, [facility] /EPI
== END 2019-07-20 11:46 | disposition home or self-care (01) ==
LOC: ER 23:43
DX: G47.30 Sleep apnea, unspecified (principal); E78.5 Hyperlipidemia, unspecified; E03.9 Hypothyroidism, unspecified; I48.0 Paroxysmal atrial fibrillation; E11.22 Type 2 diabetes mellitus with diabetic chronic kidney disease; I12.9 Hypertensive chronic kidney disease with stage 1 through stage 4 chronic kidney disease, or unspecified chronic kidney disease; N18.9 Chronic kidney disease, unspecified; J44.9 Chronic obstructive pulmonary disease, unspecified; E66.9 Obesity, unspecified; Z68.42 Body mass index [BMI] 45.0-49.9, adult; Z86.718 Personal history of other venous thrombosis and embolism; Z87.01 Personal history of pneumonia (recurrent); Z79.4 Long term (current) use of insulin; Z88.8 Allergy status to other drugs, medicaments and biological substances

== ENCOUNTER 2019-07-23 16:16 | Inpatient (IN) | payer OTHER, BC ==
[~2019-07-23] VITALS: Ht 157.5 cm; Wt 112.3 kg
[2019-07-23 16:18] VITALS: BP 196/130
[2019-07-23 16:47] LABS: BE(vivo) 22.3 mmol/L (-2 to +3); HCO3 50.5 mmol/L (22.0-26.0); PCO2 78.8 mmHg (35.0-45.0); PO2 63.3 mmHg (80.0-100.0); pH 7.425 (7.360-7.450); sO2 91.4 % (92.0-98.0)
[2019-07-23 17:12] LABS: HEMATOCRIT 30.7 % (37.0-47.0); HEMOGLOBIN 9.9 gm/dL (12.0-15.0); MCH 30.8 pg (26.0-34.0); MCHC 32.1 g/dL (28.0-37.0); RDW 14.2 % (10.5-14.5); WBC 24.7 thou/uL (4.0-11.0)
[2019-07-23 17:21] LABS: ANION GAP 2 mmol/L (7-16); BUN 56 mg/dL (7-18); CALCIUM 8.2 mg/dL (8.5-10.1); CHLORIDE 99 mmol/L (98-107); CO2 43 mmol/L (21-32); CREATININE 1.1 mg/dL (0.6-1.0); GLUCOSE 225 mg/dL (74-106); SODIUM 144 mmol/L (136-145)
[2019-07-23 17:32] LABS: ALBUMIN 2.5 g/dL (3.4-5.0); DIRECT BILIRUBIN 0.2 mg/dL (<0.1-0.3); MAGNESIUM 1.3 mg/dL (1.8-2.4); SGOT 16 U/L (15-37); SGPT 27 U/L (30-65); TOTAL BILIRUBIN 0.5 mg/dL (<0.1-1.0); TOTAL PROTEIN 5.9 g/dL (6.4-8.2); TROPONIN-I <0.06 ng/mL (<0.06)
[2019-07-23 17:34] LABS: POTASSIUM 2.9 mmol/L (3.5-5.1)
[2019-07-23 17:38] LABS: ABSOLUTE NEUTROPHILS 22.5 thou/uL (1.4-8.2); PLATELET COUNT 238 thou/uL (150-400)
[2019-07-23 17:39] LABS: LARGE PLATELETS RARE
[2019-07-23 19:55] VITALS: BP 179/74
[2019-07-23 20:34] VITALS: BP 149/65
[2019-07-23 20:45] VITALS: BP 177/58
[2019-07-23 23:55] VITALS: BP 150/62
[2019-07-24 03:29] LABS: HEMATOCRIT 28.9 % (37.0-47.0); HEMOGLOBIN 9.2 gm/dL (12.0-15.0); MCH 30.4 pg (26.0-34.0); MCHC 31.8 g/dL (28.0-37.0); MCV 95.7 fL (80.0-100.0); RBC 3.02 mil/uL (4.20-5.00); RDW 14.3 % (10.5-14.5); WBC 16.8 thou/uL (4.0-11.0)
[2019-07-24 03:32] LABS: MAGNESIUM 1.7 mg/dL (1.8-2.4); POTASSIUM 3.7 mmol/L (3.5-5.1)
[2019-07-24 04:03] LABS: BUN 53 mg/dL (7-18); CALCIUM 8.2 mg/dL (8.5-10.1); CHLORIDE 96 mmol/L (98-107); CREATININE 1.3 mg/dL (0.6-1.0); GLUCOSE 231 mg/dL (74-106); POTASSIUM 3.7 mmol/L (3.5-5.1); SODIUM 145 mmol/L (136-145)
[2019-07-24 04:05] VITALS: BP 139/64
[2019-07-24 04:07] LABS: ALBUMIN 2.4 g/dL (3.4-5.0); PHOSPHORUS 2.3 mg/dL (2.5-4.9)
[2019-07-24 04:16] LABS: CO2 > 45 mmol/L (21-32)
--- NOTE | 2019-07-24 04:44 | NUR ---
RAPID RESPONSE CALLED BY STAFF. SEE FORMSTONE FITTER FLOWSHEET.
[2019-07-24 05:38] LABS: BE(vivo) 22.8 mmol/L (-2 to +3); HCO3 51.2 mmol/L (22.0-26.0); PCO2 81.5 mmHg (35.0-45.0); PO2 79.8 mmHg (80.0-100.0); pH 7.416 (7.360-7.450); sO2 95.2 % (92.0-98.0)
[2019-07-24 07:35] VITALS: BP 150/94
--- NOTE | 2019-07-24 07:56 | NUR ---
PATIENT WAS ADMITED 2100. PATIENT WAS ON 6LNC. PATIENT IS NOW ON BIPAP DUE TO DROP IN OXYGEN SAT AT 0417. SATS WERE 67% ON ROOM AIR. PATIENT REMOVED NC. NURSE APPLIED C PAP. CALLED RAPID RESPONSE. PATIENT PLACED ON BIPAP. 02 SAT IN 90S BY 0444. PATIENT HAS A SILVA. PATIENT IS BEDREST NON WEIGHT BEAR ON LT FOOT DUE TO ANKEL FX. INTERNAL PINS AND CAST IN PLACE. SCDS ON. PATIENT LBM WAS THE 1ST PATIENT FEELS CONSTIPATED. PATIENT HAS A PACEMAKER. PATIENT NEEDS SOME KIND OF ANTICOAGULATION. AT BEDSIDE. PATIENT ALERT TO SELF AND SITUATION. PATIENT IS A-FIB ON TELE. ACCUCHECKS FOR DM. ELECTROLYTES REPLACED. PATIENT IS RESTING IN BED. WCM.
[2019-07-24 12:15] VITALS: BP 170/74
--- NOTE | 2019-07-24 15:00 | NUR ---
care of pt assumed at @ ~0700. pt noted to have her bipap (18/8, r14, amp995%) on, but removed and placed on o2 @4lt nc @ 0745. pt a&ox4 this am, but noted to be confused and forgetful at lunch and early afternoon. pt's verbalized concern that "every time she is confused something bad tends to happen to her". pt denies soa, no n/v/d and no co pain today. pt bedrest, turned ~ every 2 hours. pt w/ a very poor to poor appetite for her meals today. dietary called to custommize meals to encourage intake. soto functional and w/o concerns at this time. pt verbalized and noted to be constipated today, medication and hydration given (although placed on a 1200cc/24hr fluid restriction today. pt's at her side all day. pt very attentive to his and states that their anniversary/62 years is today. pt's anxious to speak w/ cm/sw as he states that there were numerous problems w/ the facility transfer and care once the pt left [facility].
[2019-07-24 15:54] VITALS: BP 170/51
[2019-07-24 19:30] VITALS: BP 126/42
--- NOTE | 2019-07-25 04:08 | NUR ---
Received pt. on 4L/NC then pt. has slept well all night with BIPAP on at 45% FIO2. No respiratory distress. A fib with controlled rate. She has been repositioned. Periods of confusion and at times able to answer orientation questions. She has been reoriented.Bed alarm on for safety. Will continue to monitor.
[2019-07-25 04:12] VITALS: BP 141/35
[2019-07-25 05:40] LABS: ALBUMIN 2.4 g/dL (3.4-5.0); BUN 52 mg/dL (7-18); CALCIUM 8.4 mg/dL (8.5-10.1); CHLORIDE 99 mmol/L (98-107); CREATININE 1.3 mg/dL (0.6-1.0); GLUCOSE 104 mg/dL (74-106); PHOSPHORUS 3.3 mg/dL (2.5-4.9); POTASSIUM 3.5 mmol/L (3.5-5.1); SODIUM 148 mmol/L (136-145)
[2019-07-25 05:48] LABS: CO2 > 45 mmol/L (21-32)
[2019-07-25 07:31] VITALS: BP 102/75
--- NOTE | 2019-07-25 09:07 | EKG ---
[address] [place] [address] ELECTROCARDIOGRAM REPORT Name: ROXANNANURISMarlonMAGALY Room #: 359-P ADM IN M.R.#: [id number] ������������������ Admission: 07/23/19 ������������������ Attend Phys: Betito Auguste Discharge: ������������������ Date of : 37 Report #: [id number] ����������������������������������������������������������������� [id number] THIS REPORT FOR: //name// [facility] ED Test Date: 2019-07-23 Test Time: 16:29:25 Pat Name: MAGALY PIERSON Department: Room: 359 Gender: F Recreation Engineer: SADE : [id number] Requested By: Angela Ragsdale Order Number: [id number] MD: Luis Casas Measurements Intervals [place] Rate: 78 P: MA: QRS: -46 QRSD: 191 T: 129 QT: 439 QTc: 501 Interpretive Statements Afib/flut and V-paced complexes No further analysis attempted due to paced rhythm Compared to ECG 07/19/2019 23:51:46 Right bundle-branch block no longer present Electronically Signed On 07-25-2019 9:07:29 CDT by Luis Casas [email or web address] ��������������������������������������������� <ELECTRONICALLY SIGNED> ���������������������������������������� By: Luis Casas MD ��������������������������������������������� 07/25/19 0907 1629 1629 Luis Casas MD /EPI
--- NOTE | 2019-07-25 10:49 | NUR ---
ASSESSMENT: CM REVIEWED CHART AND MET WITH PATIENT AND HER AT THE BEDSIDE. PT IS CURRENTLY ASLEEP AND PROVIDING INFORMATION. PT WAS JUST RECENTLY DISCHARGED A FEW DAYS AGO TO [facility] AND RETURNED BACK TO [facility] AFTER HER OXYGEN SATS DROPPED. PT HAS HER OWN HOME CPAP WHICH SHE TOOK TO [facility] BUT REPORTS THE SNF WOULD NOT LET HER USE HER OWN CPAP AND STATED THEY DID NOT HAVE AN ORDER FOR A BIPAP. PTS WAS UPSET ABOUT THE SITUATION AND REPORTS THAT HE DOES NOT WANT HER TO RETURN TO A SNF. HE STATES HE HAD TO STAY THE NIGHT AT THE SNF IN ORDER FOR HER TO KEEP HER OXYGEN ON AND WOULD RATHER HAVE HER AT HOME WHERE SHE IS COMFORTABLE AND HE CAN CARE FOR HER. REPORTS THEY HAVE A RAMP TO ENTER THE HOME, AGUSTINA LIFT, WHEELCHAIR, WALKER, CANE, COMMODE, WELL A NEBULIZER, HOME OXYGEN AND CPAP MACHINE. HE REPORTS THEY LIVE IN [place], [place]. REPORTS PHYSICIAN STATES THEY MAY CONSULT [facility]. CM WILL CONTINUE TO FOLLOW TO SEE HOW PATIENT PROGRESSES.
--- NOTE | 2019-07-25 12:05 | NUR ---
WOUND CONSULT; REMOVED ENOUGH OF THE DRESSING TO VISUALIZE THE INSCISION. THIE INSC IS INTACT WITH NO ERYTHEMA PRESENT. I REAPPLIED THE ANEESH WRAP. A BLISTERED AREA TO THE RIGHT LATERAL ABDOMEN WAS NOTED. AN UNSTABLE BLISTER THAT WAS OVERED WITH A FOAM DRESSING. RECOMMENDATIONS; NOTHING TO ADD,WAIT FOR NOW FOR ADDITIONAL ORDERS FOR THE LEFT ANKLE. THE RIGHT ABDOMEN CONTINUE THE FOAM DRESSING, CHANGE M/W/F PRN. DISCUSSED WITH STAFF
[2019-07-25 14:31] VITALS: BP 126/46
[2019-07-25 17:30] VITALS: BP 137/62
[2019-07-25 19:12] VITALS: BP 161/60
--- NOTE | 2019-07-25 19:54 | NUR ---
pt is A&OX3, PT is continuing o2 4l/min/nc, pt's vs and o2sat are stable, pt has SOB with activies, pt needs help ADL and change position, pt has slowly meeting care plan goals.
[2019-07-26 03:10] VITALS: BP 145/58
--- NOTE | 2019-07-26 04:45 | NUR ---
FOLLOWING POC WITH Q2 TURNS ELEVATING LE WITH PILLOWS AND IVPB. LOW LOSS PUMP IN PLACE. PT ON BIPAP AT 2030 AND REQUESTED TO COME OFF IT AT 0230. PLACED PT BACK ON 4L 02 VIA NC. CONTINUE PULSE OX IN PLACE AND PT SATS ARE IN MID NINETIES UNLESS SHE TAKES THE O2 OFF SHE DROPS TO 60-70. SILVA IN PLACE DUE TO IMMOBILITY. PT TAKES PILLS WHOLE WITH SIPS OF WATER. ONLY COMPLAINTS WERE ABOUT HER LEGS HURTING, OFFERED TRAMADOL AND PT REFUSED, STATES IT CONSTIPATES HER. HOURLY ROUNDING.
[2019-07-26 05:37] LABS: HEMATOCRIT 27.2 % (37.0-47.0); HEMOGLOBIN 8.9 gm/dL (12.0-15.0); MCH 31.7 pg (26.0-34.0); MCHC 32.8 g/dL (28.0-37.0); MCV 96.6 fL (80.0-100.0); RBC 2.82 mil/uL (4.20-5.00); RDW 14.3 % (10.5-14.5); WBC 9.4 thou/uL (4.0-11.0)
[2019-07-26 05:40] LABS: ALBUMIN 2.5 g/dL (3.4-5.0); BUN 45 mg/dL (7-18); CALCIUM 8.6 mg/dL (8.5-10.1); CHLORIDE 98 mmol/L (98-107); CREATININE 1.3 mg/dL (0.6-1.0); GLUCOSE 108 mg/dL (74-106); PHOSPHORUS 2.4 mg/dL (2.5-4.9); POTASSIUM 3.2 mmol/L (3.5-5.1); SODIUM 146 mmol/L (136-145)
[2019-07-26 05:49] LABS: CO2 > 45 mmol/L (21-32)
--- NOTE | 2019-07-26 05:55 | NUR ---
LAB CALLED WITH [facility] OF C02 GREATER THAN 45. CALLED AND LEFT MESSAGE WITH FRANCES YORK. LAST THREE DAYS SAME LAB RESULTED.
[2019-07-26 08:03] VITALS: BP 150/80
[2019-07-26 11:42] VITALS: BP 141/111
--- NOTE | 2019-07-26 16:46 | NUR ---
pt is A&OX3, but pt is forgetful, pt is on o2 4L/MIN/NC, PT's vs ,o2sat and bs are stable, pt gets up to sit bedside with PT assist, pt denies pain and sob, pt's family stay at bedside, pt has slowly meeting care plan goals.
--- NOTE | 2019-07-26 16:54 | NUR ---
PATIENT SEEN BY HANNAH ANDERSON NP FOR DR. L[facility], ON 07/25/19. PATIENT IS NOT A CANDIDATE FOR ACUTE REHAB/[address] [place] [address] ADMISSION. AVIATION TECHNICIAN INFORMED. THANK YOU FOR THIS REFERRAL.
[2019-07-26 18:24] VITALS: BP 136/66
[2019-07-26 19:49] VITALS: BP 113/73
[2019-07-27 03:53] VITALS: BP 110/42
[2019-07-27 06:03] LABS: % SATURATION 28 % (20-39); IRON 68 ug/dL (50-170); TIBC 239 ug/dL (250-450)
[2019-07-27 06:08] LABS: ALBUMIN 2.2 g/dL (3.4-5.0); BUN 44 mg/dL (7-18); CALCIUM 8.5 mg/dL (8.5-10.1); CHLORIDE 94 mmol/L (98-107); CREATININE 1.2 mg/dL (0.6-1.0); GLUCOSE 101 mg/dL (74-106); POTASSIUM 3.9 mmol/L (3.5-5.1); SODIUM 143 mmol/L (136-145)
[2019-07-27 06:15] LABS: CO2 > 45 mmol/L (21-32)
[2019-07-27 06:29] LABS: ABSOLUTE RETIC COUNT 0.1192 10^6/uL; OBSERVED RETIC COUNT 2.28 % (0.6-2.6)
[2019-07-27 07:24] VITALS: BP 138/52
--- NOTE | 2019-07-27 08:03 | NUR ---
PT REFUSING BIPAP AGAIN. EDUCATED PT ON URGENCY FOR BIPAP. CONTINUOS PULSE OX IN PLACE. POC WITH IVPB ANTIBIOTICS AND TURNING PT FREQUENTLY. HOURLY ROUNDING.
[2019-07-27 11:07] VITALS: BP 133/43
--- NOTE | 2019-07-27 13:53 | NUR ---
ON-GOING ASSESSMENT: CM REVIEWED CHART AND MET WITH PATIENT AND HER AT THE BEDSIDE. PT IS WANTING TO RETURN HOME AND NOT TO A SNF. STATES HE DEFINTELY DOES NOT WANT HER RETURNING TO SNF AND STATES HE HAS ALL THE EQUIPTMENT AT HOME TO TAKE CARE OF HER INCLUDING RAMP, WHEELCHAIR, WALKER, AGUSTINA LIFT, COMMODE, BIPAP. HE STATES HE WILL PROVIDE MUCH BETTER CARE FOR HER HE FEELS. PT HAS HAD [facility] IN THE PAST AND THEY PREFER TO USE THEM AGAIN. CM SENT REFERRAL TO [facility] . WILL NEED HELP WITH TRANSPORTATION AT DISCHARGE. CM WILL CONTINUE TO FOLLOW TO ASSIST NEEDED.
[2019-07-27 15:07] VITALS: BP 128/49
--- NOTE | 2019-07-27 18:29 | NUR ---
ASSUMED CARE OF PATIENT AT 0700. MAJOR CONCERN FOR PATIENT TODAY WAS CONTINUOUS PULSE OX LOWERING AND PUTTING HER ON BIPAP FOR MOST OF THE DAY TO COMBAT O2 SATS AROUND 84-85. PATIENT DOES NOT LIKE WEARING BIPAP MASK BUT WILL WITH ENCOURAGEMENT.
[2019-07-27 19:22] VITALS: BP 131/35
[2019-07-28 03:25] VITALS: BP 144/46
--- NOTE | 2019-07-28 05:51 | NUR ---
PT MAKING POOR PROGRESS TOWARDS GOALS. PT REPORTEDLY ON O2 AT 4L PER NC AND BIPAP AT NIGHT. PT ON BIPAP SINCE INITIAL ASSESSMENT. OFF BIPAP TWICE THIS MORNING BUT PT STATES "I CAN'T BREATH" WITHIN A FEW MINUTES. O2 PER NC UP TO 8-10L BUT PT STILL SHORT OF BREATH. PT NOTED TO BE TEARFUL, ASKING FOR HER . HE HAS ARRIVED THIS MORNING AND IS AT BEDSIDE. MAX AMOUNT OF TIME PT WAS ABLE TO STAY ON NC WAS TEN MINUTES. O2 SATS WOULD BE 92-96% BUT PT WOULD STILL SAY THAT SHE COULDN'T BREATH. BIPAP RESUMED.
[2019-07-28 07:23] VITALS: BP 152/58
[2019-07-28 08:06] LABS: MCH 31.1 pg (26.0-34.0); MCHC 31.9 g/dL (28.0-37.0); WBC 12.1 thou/uL (4.0-11.0)
[2019-07-28 08:08] LABS: ABSOLUTE NEUTROPHILS 10.4 thou/uL (1.4-8.2); BASOPHILS 0.4 % (0.0-2.0); EOSINOPHILS 2.4 % (0.0-3.0); HEMATOCRIT 28.9 % (37.0-47.0); HEMOGLOBIN 9.2 gm/dL (12.0-15.0); MCV 97.7 fL (80.0-100.0); MONOCYTES 9.6 % (1.0-8.0); POLYS 85.6 % (36.0-66.0); RBC 2.96 mil/uL (4.20-5.00)
[2019-07-28 08:13] LABS: BUN 43 mg/dL (7-18); CHLORIDE 96 mmol/L (98-107); CREATININE 1.2 mg/dL (0.6-1.0); GLUCOSE 86 mg/dL (74-106); POTASSIUM 3.4 mmol/L (3.5-5.1); SODIUM 142 mmol/L (136-145)
[2019-07-28 08:17] LABS: CO2 > 45 mmol/L (21-32)
[2019-07-28 08:34] LABS: LARGE PLATELETS OCCASIONAL; PLATELET COUNT 148 thou/uL (150-400)
--- NOTE | 2019-07-28 09:00 | NUR ---
PT STRUGGLING TO BREATHE THIS MORN...OFF BIPAP AT PRESENT PER HER WISHES...DICUSSED CODE STATUS WITH PATIENT AND SPOUSE AND THEY WISH HER TO BECOME A DNR...DR CARROLL PLACED ORDER...
[2019-07-28 11:21] VITALS: BP 138/66
[2019-07-28 13:45] LABS: BE(vivo) 19.1 mmol/L (-2 to +3); HCO3 47.6 mmol/L (22.0-26.0); PO2 58.1 mmHg (80.0-100.0); pH 7.366 (7.360-7.450); sO2 87.4 % (92.0-98.0)
--- NOTE | 2019-07-28 13:53 | NUR ---
ON-GOING ASSESSMENT: CM REVIEWED CHART AND SPOKE WITH ATTENDING. PT HAS DECLINED IN HEALTH SINCE YESTERDAY AND IS NOW DNR. PT IS CURRENTLY ON 12L OXYGEN. PT IS LIKELY NOT DISCHARGING OVER THE WEEKEND. STILL PLANS ON TAKING PATIENT HOME AT DISCHARGE WITH [facility] AND DOES NOT WANT HER GOING TO SNF. IF PATIENT IMPROVES OVER THE WEEKEND AND IS ABLE TO RETURN HOME CALL [facility] [phone] AND FAX D/C ORDERS AND SUMMARY TO [phone]. PT WILL NEED AMBULANCE TRANSPORTATION HOME AND AMBULANCE FORM IS ON THE FRONT OF CHART AND WILL NEED TO BE COMPLETED AND FAXED TO [facility] FAX:[phone] AND THEN CONTACT [facility] AT [phone] TO ARRANGE. PT HAS EQUIPTMENT AT HOME INCLUDING RAMP/AGUSTINA LIFT/CPAP/OXYGEN/WHEELCHAIR/COMMONDE/WALKER. IF PATIENT IS STILL HERE WEDNESDAY CM WILL CONTINUE TO FOLLOW UP.
[2019-07-28 15:19] VITALS: BP 152/33
[2019-07-28 19:25] VITALS: BP 124/47
--- NOTE | 2019-07-29 01:27 | NUR ---
pt complaining of panic feeling and jumping out of skin, and shortness of breath even with the bipap. obtained an ordered for her to get morphine for air hunger. he is sitting at the bedside. keeping oxygen level at 91 % on the bipap after the morhpine iv 2 mg given.
[2019-07-29 04:00] VITALS: BP 156/65
--- NOTE | 2019-07-29 04:13 | NUR ---
complains of shortness of air or air hunger. the morphine is effective for control of her intense feelings of distress. she kept telling me, help her and that she is about to panic regarding her breathing. maintaining her oxygen status with only the n/c at 8 liters at this time. progresing slowly toward goals. stays at the bedside.
[2019-07-29 04:32] LABS: BE(vivo) 20.3 mmol/L (-2 to +3); HCO3 48.4 mmol/L (22.0-26.0); PO2 59.7 mmHg (80.0-100.0)
[2019-07-29 04:34] LABS: PCO2 81.8 mmHg (35.0-45.0)
[2019-07-29 05:35] LABS: ALBUMIN 2.4 g/dL (3.4-5.0); BUN 40 mg/dL (7-18); CALCIUM 9.2 mg/dL (8.5-10.1); CHLORIDE 94 mmol/L (98-107); CREATININE 1.2 mg/dL (0.6-1.0); GLUCOSE 98 mg/dL (74-106); POTASSIUM 3.2 mmol/L (3.5-5.1); SGOT 12 U/L (15-37); SGPT 12 U/L (30-65); SODIUM 142 mmol/L (136-145); TOTAL BILIRUBIN 0.5 mg/dL (<0.1-1.0); TOTAL PROTEIN 6.2 g/dL (6.4-8.2)
[2019-07-29 05:40] LABS: CO2 > 45 mmol/L (21-32)
[2019-07-29 05:41] LABS: ABSOLUTE NEUTROPHILS 7.5 thou/uL (1.4-8.2); BASOPHILS 0.3 % (0.0-2.0); EOSINOPHILS 2.8 % (0.0-3.0); HEMATOCRIT 28.6 % (37.0-47.0); HEMOGLOBIN 9.1 gm/dL (12.0-15.0); LYMPHOCYTES 2.6 % (24.0-44.0); MCH 31.1 pg (26.0-34.0); MCHC 31.9 g/dL (28.0-37.0); MCV 97.3 fL (80.0-100.0); MONOCYTES 10.2 % (1.0-8.0); PLATELET COUNT 133 thou/uL (150-400); POLYS 84.1 % (36.0-66.0); RBC 2.94 mil/uL (4.20-5.00); RDW 14.9 % (10.5-14.5)
[2019-07-29 07:12] VITALS: BP 169/67
[2019-07-29 07:26] VITALS: BP 176/104
[2019-07-29 08:33] LABS: URINE BILIRUBIN NEGATIVE (Negative); URINE BLOOD TRACE (Negative); URINE CLARITY CLEAR; URINE COLOR YELLOW; URINE GLUCOSE-RANDOM* NEGATIVE (Negative); URINE KETONES NEGATIVE (Negative); URINE LEUKOCYTES-REFLEX NEGATIVE (Negative); URINE NITRITE-REFLEX NEGATIVE (Negative); URINE PROTEIN (DIPSTICK) TRACE (Negative); URINE UROBILINOGEN 0.2 E.U./dl (0.2-1.0)
[2019-07-29 11:27] VITALS: BP 136/50
[2019-07-29 15:36] VITALS: BP 191/63
[2019-07-29 16:22] VITALS: BP 191/63
--- NOTE | 2019-07-29 19:00 | NUR ---
HAVE HAD SEVERAL CONVERSATIONS WITH PATIENT AND SPOUSE THE LAST 2 DAYS ABOUT WISHES. THEY BOTH EXPRESSED WISHES TO BECOME PALLITIVE CARE AND CEASE PO MEDS OTHER THAT COMFORT. MORPHINE IS ORDERED FOR AIR HUNGER AND SEEMS TO HELP HER RELAX AND LET BIPAP HELP EASE HER BREATHING. IZAIAH AND I WERE IN ROOM AT BEDSIDE REPORT AND SPOUSE REPEATED WISHES TO STOP MEDS/TREATMENTS AND KEEP HER COMFORTABLE. PRASHANT YORK CALLED AND OBTAINED ATIVAN ORDERS AND DR SILVER CONSULT. SHE ALSO DC'D PO MEDS AND BLOOD SUGARS..WILL SUPPORT PROCESS WITH SPOUSE AND PATIENT AND THERE FAMILY.
--- NOTE | 2019-07-30 04:43 | NUR ---
stated that she wants to be on the otherside. she isready and comments such as this have been uttered by all night, her has been at her side the whole time. off and on the bipap through the night. the morphine is a comfort to her breathing. she does not want to have blood pressure readings or finger sticks done. we have respected her requests.
--- NOTE | 2019-07-30 20:01 | NUR ---
PATIENT RESTING MOST OF SHIFT, VERY DROWSY AND NOT ALWAYS EASILY AROUSABLE THIS SHIFT. PATIENT BEGAN TO BECOME MORE ALERT AROUND 1600 WHEN GRANDDAUGHTERS, SON, AND WERE VISITING. REMAINED ON BIPAP THROUGH SHIFT. REFUSED ANY ATTEMPTS TO USE NASAL CANNULA. PATIENT BECAME RESTLESS APPROX 18:30, MEDS GIVEN PER ORDERS FOR AIR HUNGER. & PATIENT REQUESTING PATIENT BE LEFT TO REST MUCH POSSIBLE, REFUSING TURNS AND WOUND CARE. FALL PRECAUTIONS IN PLACE. PATIENT ORDERED PALLIATIVE & COMFORT CARE.
--- NOTE | 2019-07-31 11:38 | NUR ---
babs sent updates to Jamila at [facility]
--- NOTE | 2019-07-31 11:48 | NUR ---
on-going assessment: CM REVIEWED CHART AND SPOKE WITH ATTENDING. ATTENDING MET WITH PATIENTS AND PATIENT IS NOW COMFORT CARE AND THEY WERE GOING TO TAKE HER OFF THE BIPAP TODAY. CM WILL CONTINUE TO FOLLOW.
--- NOTE | 2019-07-31 11:56 | NUR ---
WOUND CARE CONSULT; THE PATIENTS RN TODAY NOTIFIED ME THAT THE FAMILY HAS DECIDED TO WITHDRAW CARE AND COMFORT MEASURES ONLY. RECOMMENDATION; I WILL BE AVAILABLE TO ASSIST IN ANY WAY NEEDED.
--- NOTE | 2019-07-31 12:36 | NUR ---
SPOUSE IS READY TO START MORPHINE GTT AND SCOPALMINE PATCH AND REMOVE BIPAP...AWAITING ONE MORE FAMILY MEMBER...MANAGER BUSINESS MANAGEMENT IS IN ROOM NOW...EMOTIONAL SUPPORT GIVEN...
== END 2019-07-31 16:22 | DRG 871 ==
LOC: ER 16:16 → 3W 18:21 → EROBS 18:21 → 3W 20:34
PROVIDERS: Emergency Medicine; Hospitalist; Nurse Practitioner Family; Pediatrics; ADMIT Hospitalist
PROC: 5A09357 Assistance with Respiratory Ventilation, Less than 24 Consecutive Hours, Continuous Positive Airway Pressure (ICD-10-PCS; principal; 2019-07-24)
PROC: 5A09357 Assistance with Respiratory Ventilation, Less than 24 Consecutive Hours, Continuous Positive Airway Pressure (ICD-10-PCS; 2019-07-25)
PROC: 5A09357 Assistance with Respiratory Ventilation, Less than 24 Consecutive Hours, Continuous Positive Airway Pressure (ICD-10-PCS; 2019-07-27)
PROC: 5A09357 Assistance with Respiratory Ventilation, Less than 24 Consecutive Hours, Continuous Positive Airway Pressure (ICD-10-PCS; 2019-07-28)
PROC: 5A09357 Assistance with Respiratory Ventilation, Less than 24 Consecutive Hours, Continuous Positive Airway Pressure (ICD-10-PCS; 2019-07-29)
PROC: 5A09357 Assistance with Respiratory Ventilation, Less than 24 Consecutive Hours, Continuous Positive Airway Pressure (ICD-10-PCS; 2019-07-31)
DX: A41.9 Sepsis, unspecified organism (principal); J18.9 Pneumonia, unspecified organism; J96.22 Acute and chronic respiratory failure with hypercapnia; I50.33 Acute on chronic diastolic (congestive) heart failure; E43 Unspecified severe protein-calorie malnutrition; I13.0 Hypertensive heart and chronic kidney disease with heart failure and stage 1 through stage 4 chronic kidney disease, or unspecified chronic kidney disease; N18.4 Chronic kidney disease, stage 4 (severe); J44.0 Chronic obstructive pulmonary disease with (acute) lower respiratory infection; Z68.42 Body mass index [BMI] 45.0-49.9, adult; I44.2 Atrioventricular block, complete; E66.2 Morbid (severe) obesity with alveolar hypoventilation; E11.22 Type 2 diabetes mellitus with diabetic chronic kidney disease; K21.9 Gastro-esophageal reflux disease without esophagitis; E78.5 Hyperlipidemia, unspecified; E03.9 Hypothyroidism, unspecified; I48.0 Paroxysmal atrial fibrillation; E87.6 Hypokalemia; E83.42 Hypomagnesemia; D63.8 Anemia in other chronic diseases classified elsewhere; I27.20 Pulmonary hypertension, unspecified; Y95 Nosocomial condition; I08.3 Combined rheumatic disorders of mitral, aortic and tricuspid valves; R62.7 Adult failure to thrive; Z66 Do not resuscitate; Z51.5 Encounter for palliative care; I25.2 Old myocardial infarction; Z87.891 Personal history of nicotine dependence; Z86.718 Personal history of other venous thrombosis and embolism; Z87.01 Personal history of pneumonia (recurrent); Z79.899 Other long term (current) drug therapy; Z79.4 Long term (current) use of insulin; Z79.82 Long term (current) use of aspirin; Z88.8 Allergy status to other drugs, medicaments and biological substances; Z99.81 Dependence on supplemental oxygen; Z82.49 Family history of ischemic heart disease and other diseases of the circulatory system; Z80.8 Family history of malignant neoplasm of other organs or systems; Z74.01 Bed confinement status
CPT/HCPCS: 10879